=== PATIENT | female | born 1975 | race Caucasian/White ===

== ENCOUNTER 2016-10-28 22:43 | Outpatient (CLI) | payer OTHER | END 2016-10-28 22:44 | disposition home or self-care (01) | DX: G47.33 Obstructive sleep apnea (adult) (pediatric) (principal); G47.61 Periodic limb movement disorder; Z68.41 Body mass index [BMI] 40.0-44.9, adult ==

== ENCOUNTER 2016-12-15 14:46 | Outpatient (CLI) | payer OTHER | END 2016-12-15 14:47 | disposition home or self-care (01) | DX: G47.33 Obstructive sleep apnea (adult) (pediatric) (principal) ==

== ENCOUNTER 2016-12-25 16:30 | Outpatient (CLI) | payer OTHER | END 2016-12-25 16:31 | disposition home or self-care (01) | DX: N39.0 Urinary tract infection, site not specified (principal) ==

== ENCOUNTER 2017-01-28 16:25 | Outpatient (CLI) | payer OTHER ==
[2017-01-28] MEDS ORDERED: IOPAMIDOL-300 100 ML VIAL IVP ONE (19:36)
[2017-01-28] MEDS ORDERED: IOPAMIDOL-300 50 ML VIAL PO ONE (19:36)
== END 2017-01-28 16:26 | disposition home or self-care (01) ==
DX: R10.84 Generalized abdominal pain (principal)
CPT/HCPCS: 74177; Q9967

== ENCOUNTER 2017-02-02 15:11 | Outpatient (CLI) | payer OTHER | END 2017-02-02 15:12 | disposition home or self-care (01) | LOC: SC 15:11 | PROVIDERS: ATTEND Nurse Practitioner Family | DX: G47.33 Obstructive sleep apnea (adult) (pediatric) (principal) | CPT/HCPCS: 99212; 99214 ==

== ENCOUNTER 2017-08-31 19:57 | Outpatient (CLI) | payer OTHER ==
--- NOTE | 2017-09-01 12:43 | Ultrasound Report ---
PELVIC ULTRASOUND: 08/31/2017 COMPARISON: CT scan abdomen and pelvis 01/28/2017. HISTORY: Pelvic pain. Patient has fibroids and history of previous ablation. TECHNIQUE: Real-time scanning by the auto transmission mechanic with saved static images reviewed. Transabdominal approach for global evaluation. Endovaginal scanning for detailed assessment of the endometrium. LAST MENSTRUAL PERIOD: 08/16/2017 FINDINGS: The study is somewhat limited due to patient's body habitus. Uterus: 11.3 x 7.7 x 7.5 cm, volume 341 mL. There is a left fundal subserosal fibroid 3.3 x 3.3 x 3 .2 cm and a right fundal transmural fibroid 5.4 x 5.4 x 4.7 cm. The endometrial echo thickness is no t well seen. Right ovary 2.1 x 1.7 x 2.0 cm, volume 3.7 mL. Left ovary not well seen. No left adnexal mass is appreciated. No free fluid. IMPRESSION: ENLARGED, MYOMATOUS UTERUS, TOTAL VOLUME 341 ML. ENDOMETRIAL ECHO NOT WELL SEEN. NO AD NEXAL MASSES OR FREE FLUID. JOB #: [id number] EXT JOB #:[id number]
== END 2017-08-31 19:58 | disposition home or self-care (01) ==
LOC: DI 19:57
PROVIDERS: ATTEND Obstetrics & Gynecology
DX: D25.2 Subserosal leiomyoma of uterus (principal); D25.9 Leiomyoma of uterus, unspecified
CPT/HCPCS: 76830; 76856

== ENCOUNTER 2017-09-07 14:51 | Outpatient (CLI) | payer OTHER ==
[2017-09-07 14:50] LABS: HEMOGLOBIN A1C 1.25 g/dL
[2017-09-07 14:54] LABS: ALBUMIN/GLOBULIN RATIO 1.4 (1.0-2.2); BILIRUBIN,TOTAL 1.1 mg/dL (0.2-1.0); BUN - BLOOD UREA NITROGEN 12 mg/dL (6-20); CALCIUM 9.4 mg/dL (8.5-10.3); CARBON DIOXIDE - CO2 23 mmol/L (21-32); CHLORIDE 103 mmol/L (101-111); CHOL/HDL RATIO 4.3 (<4.4); CHOLESTEROL 248 mg/dL; CREATININE 0.5 mg/dL (0.4-1.0); GFR - MDRD 135 (>89); GLUCOSE 202 mg/dL (70-100); HDL CHOLESTEROL 58 mg/dL; LDL/HDL RATIO 2.4 (<4.4); POTASSIUM 3.8 mmol/L (3.5-5.0); SODIUM 137 mmol/L (135-145); TOTAL PROTEIN 7.3 g/dL (6.7-8.2); TRIGLYCERIDES 259 mg/dL; VLDL CHOLESTEROL 52 mg/dL
== END 2017-09-07 14:52 | disposition home or self-care (01) ==
LOC: LAB.WCP 14:51
PROVIDERS: ATTEND Physician Assistant Medical
DX: E11.9 Type 2 diabetes mellitus without complications (principal)
CPT/HCPCS: 36415; 80053; 80061; 82947; 83036; 84443

== ENCOUNTER 2017-10-14 18:52 | Outpatient (CLI) | payer OTHER ==
--- NOTE | 2017-10-15 11:00 | Ultrasound Report ---
DATE OF SERVICE: 10/14/2017 RIGHT UPPER QUADRANT ULTRASOUND: 10/14/2017 CLINICAL INDICATION: Pain. TECHNIQUE: Real-time scanning was performed with auto claim representative static images obtained. FINDINGS: The liver measures 19.3 cm. Hepatic echogenicity is increased, suggestive of fatty infiltration. No focal parenchymal lesion or intrahepatic biliary dilatation is seen. The common bile duct measures 3 mm. The gallbladder is normal. The right kidney measures 13.1 cm, and demonstrates no hydronephrosis. No free fluid was present. IMPRESSION: ECHOGENIC LIVER, SUGGESTIVE OF FATTY INFILTRATION. NO EVIDENCE OF CHOLELITHIASIS OR BILIARY OBSTRUCTION. TD: 10/15/2017 11:58
== END 2017-10-14 18:53 | disposition home or self-care (01) ==
LOC: DI 18:52
PROVIDERS: ATTEND Physician Assistant Medical
DX: R10.11 Right upper quadrant pain (principal)
CPT/HCPCS: 76705

== ENCOUNTER 2018-02-11 07:09 | Outpatient (CLI) | payer OTHER ==
[2018-02-11 13:34] LABS: ALBUMIN 4.1 g/dL (3.2-5.5); ALBUMIN/GLOBULIN RATIO 1.3 (1.0-2.2); ALKALINE PHOSPHATASE 46 IU/L (42-121); ALT ALANINE AMINOTRANSFERASE 50 IU/L (10-60); AST ASPARTATE AMINOTRANSFERASE 32 IU/L (10-42); BUN - BLOOD UREA NITROGEN 15 mg/dL (6-20); CALCIUM 9.4 mg/dL (8.5-10.3); CARBON DIOXIDE - CO2 21 mmol/L (21-32); CHLORIDE 104 mmol/L (101-111); CHOL/HDL RATIO 5.5 (<4.4); CHOLESTEROL 273 mg/dL; CREATININE 0.4 mg/dL (0.4-1.0); GFR - MDRD 173 (>89); GLUCOSE 274 mg/dL (70-100); HDL CHOLESTEROL 50 mg/dL; LDL CHOLESTEROL,CALCULATED 166 mg/dL; LDL/HDL RATIO 3.3 (<4.4); SODIUM 136 mmol/L (135-145); TOTAL PROTEIN 7.3 g/dL (6.7-8.2); VLDL CHOLESTEROL 57 mg/dL
[2018-02-11 13:35] LABS: HB2 TOTAL 17.9 g/dL; HEMOGLOBIN A1C 1.4 g/dL; HEMOGLOBIN A1C % 9.3 % (4.6-6.2)
== END 2018-02-11 07:10 | disposition home or self-care (01) ==
LOC: LAB.WCP 07:09
PROVIDERS: ATTEND Physician Assistant Medical
DX: E11.9 Type 2 diabetes mellitus without complications (principal)
CPT/HCPCS: 36415; 80053; 80061; 83036; 83721

== ENCOUNTER 2018-04-05 08:00 | Outpatient (CLI) | payer OTHER ==
[2018-04-05 13:30] LABS: ALBUMIN 3.7 g/dL (3.2-5.5); ALBUMIN/GLOBULIN RATIO 1.1 (1.0-2.2); ALKALINE PHOSPHATASE 40 IU/L (42-121); ALT ALANINE AMINOTRANSFERASE 35 IU/L (10-60); AST ASPARTATE AMINOTRANSFERASE 22 IU/L (10-42); BILIRUBIN,TOTAL 0.8 mg/dL (0.2-1.0); BUN - BLOOD UREA NITROGEN 14 mg/dL (6-20); CARBON DIOXIDE - CO2 26 mmol/L (21-32); CHLORIDE 107 mmol/L (101-111); CHOL/HDL RATIO 4.2 (<4.4); CHOLESTEROL 234 mg/dL; CREATININE 0.6 mg/dL (0.4-1.0); GFR - MDRD 109 (>89); GLUCOSE 126 mg/dL (70-100); HDL CHOLESTEROL 56 mg/dL; LDL CHOLESTEROL,CALCULATED 151 mg/dL; LDL/HDL RATIO 2.7 (<4.4); SODIUM 139 mmol/L (135-145); TOTAL PROTEIN 7.2 g/dL (6.7-8.2); VLDL CHOLESTEROL 27 mg/dL
[2018-04-05 13:40] LABS: HB2 TOTAL 16.5 g/dL; HEMOGLOBIN A1C 0.95 g/dL; HEMOGLOBIN A1C % 7.4 % (4.6-6.2)
== END 2018-04-05 08:01 | disposition home or self-care (01) ==
LOC: LAB.WCP 08:00
PROVIDERS: ATTEND Physician Assistant Medical
DX: E11.9 Type 2 diabetes mellitus without complications (principal)
CPT/HCPCS: 36415; 80053; 80061; 83036; 83721

== ENCOUNTER 2018-04-08 10:39 | Outpatient (CLI) | payer OTHER | END 2018-04-08 10:40 | disposition home or self-care (01) | LOC: NS 10:39 | PROVIDERS: ATTEND Physician Assistant Medical | DX: E11.9 Type 2 diabetes mellitus without complications (principal); Z68.41 Body mass index [BMI] 40.0-44.9, adult; Z79.4 Long term (current) use of insulin | CPT/HCPCS: 97802 ==

== ENCOUNTER 2018-04-25 12:34 | Outpatient (CLI) | payer OTHER ==
[2018-04-25 13:16] LABS: BASOPHILS # (AUTO) 0.1 10^3/uL (0.0-0.1); BASOPHILS % (AUTO) 0.7 %; EOSINOPHILS # (AUTO) 0.4 10^3/uL (0.0-0.7); EOSINOPHILS % (AUTO) 4.4 %; HGB - HEMOGLOBIN 15.5 g/dL (12.0-16.0); LYMPHOCYTES # (AUTO) 2.8 10^3/uL (1.5-3.5); LYMPHOCYTES % (AUTO) 28.5 %; MEAN CORPUSCULAR HEMOGLOBIN 31.2 pg (27.0-31.0); MEAN CORPUSCULAR HGB CONC 33.6 g/dL (32.0-36.0); MEAN PLATELET VOLUME 8.3 fL (7.9-10.8); MONOCYTES # (AUTO) 0.7 10^3/uL (0.0-1.0); MONOCYTES % (AUTO) 7.2 %; NEUTROPHILS # (AUTO) 5.7 10^3/uL (1.5-6.6); NEUTROPHILS % (AUTO) 59.2 %; PLT - PLATELET COUNT 278 10^3/uL (130-450); RED BLOOD COUNT 4.98 10^6/uL (4.20-5.40); RED CELL DISTRIBUTION WIDTH 12.5 % (12.0-15.0); WHITE BLOOD COUNT 9.7 x10^3/uL (4.8-10.8)
[2018-04-25 13:28] LABS: ALBUMIN 4.1 g/dL (3.2-5.5); ALBUMIN/GLOBULIN RATIO 1.1 (1.0-2.2); BILIRUBIN,TOTAL 1.3 mg/dL (0.2-1.0); CALCIUM 9.2 mg/dL (8.5-10.3); CREATININE 0.5 mg/dL (0.4-1.0); TOTAL PROTEIN 7.8 g/dL (6.7-8.2)
[2018-04-25 14:06] LABS: BILIRUBIN,URINE NEGATIVE (NEGATIVE); GLUCOSE, URINE (UA) NEGATIVE (NEGATIVE); KETONES,URINE (UA) NEGATIVE (NEGATIVE); LEUKOCYTE ESTERASE, URINE NEGATIVE (NEGATIVE); NITRITE,URINE NEGATIVE (NEGATIVE); OCCULT BLOOD,URINE TRACE-INTA (NEGATIVE); PH,URINE 6.5 PH (5.0-7.5); PROTEIN,URINE NEGATIVE (NEGATIVE); UROBILINOGEN,URINE 1 (NORMAL) E.U./dL (NORMAL)
[2018-04-25 14:09] LABS: CLARITY,URINE CLEAR (CLEAR); HCG UR QUAL NEGATIVE
== END 2018-04-25 12:35 | disposition home or self-care (01) ==
LOC: LAB 12:34
PROVIDERS: ATTEND Obstetrics & Gynecology
DX: Z01.812 Encounter for preprocedural laboratory examination (principal); N92.0 Excessive and frequent menstruation with regular cycle; D25.9 Leiomyoma of uterus, unspecified
CPT/HCPCS: 36415; 80053; 81003; 81025; 85025; 86850; 86900; 86901

== ENCOUNTER 2018-04-27 06:05 | Inpatient (IN) | payer OTHER ==
--- NOTE | 2018-04-26 07:30 | PREOP HISTORY & PHYSICAL ---
please review meds & allergies below REMOVE THIS NOTE BEFORE SIGNING Thanks DATE OF SERVICE: 04/27/2018 Physician: Mark Pike MD DRAFT PREOP H&P OF 04/25/2018 FOR ANTICIPATED DATE OF PROCEDURE OF 04/27/2018. DIAGNOSES 1. Menorrhagia. 2. Large endometrial leiomyoma. 3. Failed endometrial ablation. 4. Morbid obesity with body mass index 43+. 5. Type 2 diabetes. 6. Hypertension. 7. History of colonic tubular adenoma. INTENDED PROCEDURE: Total laparoscopic hysterectomy/LAVH; bilateral salpingectomy; possible laparotomy with abdominal hysterectomy (total or subtotal). HISTORY OF PRESENT ILLNESS: Patient is a 43-year-old nulligravida who has had multiple bouts of heavy uterine bleeding that has failed prior endometrial ablation by [employer]. She describes the bleeding at times almost daily saturating pads and tampons. This makes work and social activities very difficult. She underwent a [employer] endometrial ablation in January of 2011 and, for a short time, this provided relief. However, within the last 10 months, she has had a return to heavy bleeding. Endometrial biopsy found strips of endometrium without atypia and that was in August 2017. Pelvic ultrasound in August 2017 found a large 5.5 diameter right fundal fibroid with a 3.3 left fundal diameter. Endometrial stripe was not seen, but not significantly large to be real alarming. Working diagnosis is of expanding uterine leiomyoma, one of which is submucosal intramural causing heavy bleeding. She originally lobbied heavily for a hysterectomy, but her diabetes was in poor control with a hemoglobin A1c of 10. Since that time, she has begun diet and exercise and started split-dose insulin. Current insulin dosage is Victoza 18 mg/3 mL subcutaneous pen injector with increasing dose from 0.6 to 1.2 to 1.8. She did have a trial of Humulin. Currently, she takes Humulin N KwikPen 24 units subcutaneous with breakfast and dinner. Her last hemoglobin A1c was 7.4. Baseline weight at her PCP's office was 251, and today's weight at our office is 247. Patient's blood pressure is in control. As patient began to lose weight and her blood glucose is in better control, she began to lobby for hysterectomy; again, she was offered a referral for robotic surgery or fibroid embolization or focused ultrasound treatment of fibroids. These were rejected. She was counseled on the risks of surgery inclusive of anesthesia reaction, bleeding, transfusion, infection, damage to urinary tract or intestines, and high probability of laparotomy. This counseling was repeated twice, once with myself and then with Dr. Mark Webb for a second opinion. Patient strongly desires surgery at [facility] and, after appropriate clearance from both her PCP, SUSANA Ovalle, and Anesthesia, she was scheduled for her case. MEDICATIONS: ALLERGIES 1. CLINDAMYCIN. 2. METFORMIN. 3. VICODIN. 4. MENTHOL. 5. [TIME: 08:24]. 6. SULFA. 7. CYMBALTA. PAST SURGICAL HISTORY 1. Lumpectomy 09/09/2017. 2. Endometrial ablation 09/09/2017. 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 No regular alcohol consumption or drugs of abuse. FAMILY HISTORY: Breast cancer, paternal relatives and particularly aunt. Diabetes, father. Depression, father and brother. High cholesterol, father. REVIEW OF SYSTEMS CONSTITUTIONAL: Weight loss planned. HEENT: Negative. CARDIOVASCULAR: No chest pain, irregular rhythm or problems. Recent EKG, normal sinus rhythm. No acute changes. RESPIRATORY: Negative. GASTROINTESTINAL: Negative. GENITOURINARY: Outlined above. URINARY: Negative. MUSCULOSKELETAL: Negative. SKIN: Negative. BREASTS: Biopsies noted above. No recent changes. NEUROLOGIC: Negative. PSYCHIATRIC: Negative. PHYSICAL EXAMINATION GENERAL: Well groomed, pleasant. VITAL SIGNS: Height 66 inches, weight 247, pulse 72, blood pressure 132/84 large cuff. HEENT: Supple neck. No thyromegaly. EOMI. Dentition in good repair. LUNGS: Clear but distant. CARDIAC: Regular. No significant murmur, distant. ABDOMEN: Truncal obesity with double pannus. Significant fat pad. No obvious hernias. EXTERNAL GENITALIA: No lesions. VAGINA: No significant cystorectocele. No urethral tenderness. CERVIX: No inflammation. Very little mobility. UTERUS: Bulky, large, difficult to determine exact size. ADNEXA: Cannot evaluate. EXTREMITIES: Moves all 4 extremities well. SKIN: Negative. NEUROLOGIC: Negative. PSYCHIATRIC: Negative. DIAGNOSTIC DATA: Preop labs pending. ASSESSMENT: Patient's uterine bleeding is most likely the result of expanding uterine leiomyoma. There are no alarming features to her ultrasound to suggest a concomitant hyperplasia or even carcinoma, though given her obesity, that is possible. Hysterectomy can be accomplished and hopefully total laparoscopic hysterectomy with removal of the tubes. This will be a difficult procedure due to her body habitus. Bariatric instruments will be needed and her pannus may need to be taped accordingly. Prolonged Trendelenburg could cause respiratory difficulty. All these have been discussed with Anesthesia. Patient is aware of the risks of surgery and given nonsurgical methods as well as referral for robotic surgery. She strongly rejects the above. PLAN: Patient will undergo a total laparoscopic hysterectomy that may need to be converted to an abdominal hysterectomy. If abdominal conversion is required , we may not perform a total hysterectomy, but rather subtotal. Patient is well aware of the risks, and these have been discussed on multiple occasions. We will get blood typed and screened ahead of time. TD: 04/25/2018 11:37 [email or web address]
--- NOTE | 2018-04-26 12:33 | PREOP HISTORY & PHYSICAL ---
DATE OF SERVICE: 04/27/2018 Physician: Mark Pike MD DRAFT PREOP H&P OF 04/25/2018 FOR ANTICIPATED DATE OF PROCEDURE OF 04/27/2018. DIAGNOSES 1. Menorrhagia. 2. Large endometrial leiomyoma. 3. Failed endometrial ablation. 4. Morbid obesity with body mass index 43+. 5. Type 2 diabetes. 6. Hypertension. 7. History of colonic tubular adenoma. INTENDED PROCEDURE: Total laparoscopic hysterectomy/LAVH; bilateral salpingectomy; possible laparoto my with abdominal hysterectomy (total or subtotal). HISTORY OF PRESENT ILLNESS: Patient is a 43-year-old nulligravida who has had multiple campos ts of heavy uterine bleeding that has failed prior endometrial ablation by [employer]. She describes t he bleeding at times almost daily saturating pads and tampons. This makes work and social activities very difficult. She underwent a [employer] endometrial ablation in January of 2011 and, for a short time, this provided relief. However, within the last 10 months, she has had a return to heavy bleeding. Endometrial biopsy found strips of endometrium without atypia and that was in August 2017. Pelvic ultrasound in August 2017 found a large 5.5 diameter right fundal fibroid with a 3.3 left fundal di ameter. Endometrial stripe was not seen, but not significantly large to be real alarming. Working d iagnosis is of expanding uterine leiomyoma, one of which is submucosal intramural causing heavy bleed ing. She originally lobbied heavily for a hysterectomy, but her diabetes was in poor control with a hemogl obin A1c of 10. Since that time, she has begun diet and exercise and started split-dose insulin. Cu rrent insulin dosage is Victoza 18 mg/3 mL subcutaneous pen injector with increasing dose from 0.6 to 1.2 to 1.8. She did have a trial of Humulin. Currently, she takes Humulin N KwikPen 24 units subcu taneous with breakfast and dinner. Her last hemoglobin A1c was 7.4. Baseline weight at her PCP's of [facility] was 251, and today's weight at our office is 247. Patient's blood pressure is in control. As patient began to lose weight and her blood glucose is in better control, she began to lobby for hy sterectomy; again, she was offered a referral for robotic surgery or fibroid embolization or focused ultrasound treatment of fibroids. These were rejected. She was counseled on the risks of surgery in clusive of anesthesia reaction, bleeding, transfusion, infection, damage to urinary tract or intestin es, and high probability of laparotomy. This counseling was repeated twice, once with myself and the n with Dr. Mark Webb for a second opinion. Patient strongly desires surgery at [facility] and, after appro priate clearance from both her PCP, SUSANA Ovalle, and Anesthesia, she was scheduled for her case. MEDICATIONS: ALLERGIES 1. CLINDAMYCIN. 2. METFORMIN. 3. VICODIN. 4. MENTHOL. 5. [TIME: 08:24]. 6. SULFA. 7. CYMBALTA. PAST SURGICAL HISTORY 1. Lumpectomy 09/09/2017. 2. Endometrial ablation 09/09/2017. 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 No r egular alcohol consumption or drugs of abuse. FAMILY HISTORY: Breast cancer, paternal relatives and particularly aunt. Diabetes, father. Depress ion, father and brother. High cholesterol, father. REVIEW OF SYSTEMS CONSTITUTIONAL: Weight loss planned. HEENT: Negative. CARDIOVASCULAR: No chest pain, irregular rhythm or problems. Recent EKG, normal sinus rhythm. No a cute changes. RESPIRATORY: Negative. GASTROINTESTINAL: Negative. GENITOURINARY: Outlined above. URINARY: Negative. MUSCULOSKELETAL: Negative. SKIN: Negative. BREASTS: Biopsies noted above. No recent changes. NEUROLOGIC: Negative. PSYCHIATRIC: Negative. PHYSICAL EXAMINATION GENERAL: Well groomed, pleasant. VITAL SIGNS: Height 66 inches, weight 247, pulse 72, blood pressure 132/84 large cuff. HEENT: Supple neck. No thyromegaly. EOMI. Dentition in good repair. LUNGS: Clear but distant. CARDIAC: Regular. No significant murmur, distant. ABDOMEN: Truncal obesity with double pannus. Significant fat pad. No obvious hernias. EXTERNAL GENITALIA: No lesions. VAGINA: No significant cystorectocele. No urethral tenderness. CERVIX: No inflammation. Very little mobility. UTERUS: Bulky, large, difficult to determine exact size. ADNEXA: Cannot evaluate. EXTREMITIES: Moves all 4 extremities well. SKIN: Negative. NEUROLOGIC: Negative. PSYCHIATRIC: Negative. DIAGNOSTIC DATA: Preop labs pending. ASSESSMENT: Patient's uterine bleeding is most likely the result of expanding uterine leiomyoma. Th ere are no alarming features to her ultrasound to suggest a concomitant hyperplasia or even carcinoma , though given her obesity, that is possible. Hysterectomy can be accomplished and hopefully total laparoscopic hysterectomy with removal of the tu bes. This will be a difficult procedure due to her body habitus. Bariatric instruments will be need ed and her pannus may need to be taped accordingly. Prolonged Trendelenburg could cause respiratory difficulty. All these have been discussed with Anesthesia. Patient is aware of the risks of surgery and given nonsurgical methods as well as referral for robotic surgery. She strongly rejects the abo ve. PLAN: Patient will undergo a total laparoscopic hysterectomy that may need to be converted to an abd ominal hysterectomy. If abdominal conversion is required, we may not perform a total hysterectomy, b ut rather subtotal. Patient is well aware of the risks and these have been discussed on multiple occ asions. We will get blood typed and screened ahead of time. TD: 04/25/2018 11:37
--- NOTE | 2018-04-26 12:41 | PREOP HISTORY & PHYSICAL ---
DATE OF SERVICE: 04/25/2018 Physician: Mark Pike MD PREOP H&P OF 04/25/2018 FOR ANTICIPATED DATE OF PROCEDURE OF 04/27/2018. DIAGNOSES 1. Menorrhagia. 2. Large endometrial leiomyoma. 3. Failed endometrial ablation. 4. Morbid obesity with body mass index 43+. 5. Type 2 diabetes. 6. Hypertension. 7. History of colonic tubular adenoma. INTENDED PROCEDURE: Total laparoscopic hysterectomy/LAVH; bilateral salpingectomy; possible laparotomy with abdominal hysterectomy (total or subtotal). HISTORY OF PRESENT ILLNESS: Patient is a 43-year-old nulligravida who has had multiple bouts of heavy uterine bleeding that has failed prior endometrial ablation by [employer]. She describes the bleeding daily saturating pads and tampons. Bleeding & Pain makes work and social activities very difficult. She underwent a [employer] endometrial ablation in January of 2011 and, for a short time, this provided relief. However, within the last 10 months, she has had a return to heavy bleeding. Endometrial biopsy found strips of endometrium without atypia and that was in August 2017. Pelvic ultrasound in August 2017 found a large 5.5 diameter right fundal fibroid with a 3.3 left fundal diameter. Endometrial stripe was not seen and not significantly large to be real alarming. Working diagnosis is of expanding uterine leiomyoma, with submucosal intramural causing heavy bleeding. She originally lobbied heavily for a hysterectomy, but her diabetes was in poor control with a hemoglobin A1c of 10. She has begun diet and exercise and started split-dose insulin. Current insulin dosage is Victoza 18 mg/3 mL subcutaneous pen injector with increasing dose from 0.6 to 1.2 to 1.8. She did have a trial of Humulin. Currently, she takes Humulin N KwikPen 24 units subcutaneous with breakfast and dinner. Her last hemoglobin A1c was 7.4. Baseline weight at her PCP's office was 251, and today's weight at our office is 247. Patient's blood pressure is in control. As patient began to lose weight and her blood glucose is in better control, she began to lobby for hysterectomy; again, she was offered a referral for robotic surgery, fibroid embolization or focused ultrasound treatment of fibroids. These were rejected. She was counseled on the risks of surgery inclusive of anesthesia reaction, bleeding, transfusion, infection, damage to urinary tract or intestines, and high probability of laparotomy. This counseling was repeated twice, once with myself and then with Dr. Mark Webb for a second opinion. Patient strongly desires surgery at [facility] and, after appropriate clearance from both her PCP, SUSANA Ovalle, and Anesthesia, she was scheduled for her case. MEDICATIONS: Propranolol 10 mg twice daily Humulin and 24 units twice daily Sertraline 20 mg twice daily Multiple herbal medications of which she is taken none in the last 7 days. ALLERGIES 1. CLINDAMYCIN. 2. METFORMIN. 3. VICODIN. 4. MENTHOL. 6. SULFA. 7. CYMBALTA. PAST SURGICAL HISTORY 1. Lumpectomy 09/09/2017. 2. Endometrial ablation 09/09/2017. 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 No regular alcohol consumption or drugs of abuse. FAMILY HISTORY: Breast cancer, paternal relatives and particularly aunt. Diabetes, father. Depression, father and brother. High cholesterol, father. REVIEW OF SYSTEMS CONSTITUTIONAL: Weight loss planned. HEENT: Negative. CARDIOVASCULAR: No chest pain, irregular rhythm or problems. Recent EKG, normal sinus rhythm. No acute changes. RESPIRATORY: Negative. GASTROINTESTINAL: Negative. GENITOURINARY: Outlined above. URINARY: Negative. MUSCULOSKELETAL: Negative. SKIN: Negative. BREASTS: Biopsies noted above. No recent changes. NEUROLOGIC: Negative. PSYCHIATRIC: Negative. PHYSICAL EXAMINATION GENERAL: Well groomed, pleasant. VITAL SIGNS: Height 66 inches, weight 247, pulse 72, blood pressure 132/84 large cuff. HEENT: Supple neck. No thyromegaly. EOMI. Dentition in good repair. LUNGS: Clear but distant. CARDIAC: Regular. No significant murmur, distant. ABDOMEN: Truncal obesity with double pannus. Significant fat pad. No obvious hernias. EXTERNAL GENITALIA: No lesions. VAGINA: No significant cystorectocele. No urethral tenderness. CERVIX: No inflammation. Very little mobility. UTERUS: Bulky, large, difficult to determine exact size. ADNEXA: Cannot evaluate. EXTREMITIES: Moves all 4 extremities well. SKIN: Negative. NEUROLOGIC: Negative. PSYCHIATRIC: Negative. DIAGNOSTIC DATA: Preop labs pending. ASSESSMENT: Patient's uterine bleeding is most likely the result of expanding uterine leiomyoma. There are no alarming features to her ultrasound to suggest a concomitant hyperplasia or carcinoma, though given her obesity, that is possible. Hysterectomy can be accomplished and hopefully total laparoscopic hysterectomy with removal of the tubes. LVH / LAVH will be a difficult procedure due to her body habitus. Bariatric instruments will be needed and her pannus may need to be taped accordingly. Prolonged Trendelenburg could cause respiratory difficulty. All these have been discussed with Anesthesia. Patient is aware of the risks of surgery and given nonsurgical methods as well as referral for robotic surgery. She strongly rejects transfer of care or nonsurgical fibroid treatment.. PLAN: Patient will undergo a total laparoscopic hysterectomy that may need to be converted to an abdominal hysterectomy. If abdominal conversion is required , we may not perform a total hysterectomy, but rather subtotal. Patient is well aware of the risks and these have been discussed on multiple occasions. We will get blood typed and screened ahead of time. TD: 04/25/2018 11:37 NNEKA
[2018-04-27 07:06] LABS: HCG UR QUAL NEGATIVE
--- NOTE | 2018-04-27 07:06 | ANESTHESIA ---
Pre-Anesthesia VS, & Labs - Diagnosis menorrhagia, fibroid uterus - Procedure total abdominal hysterectomy Vital Signs: Temp Pulse Resp BP Pulse Ox 36.7 C 20 118/81 H 96 04/27/18 06:40 04/27/18 06:40 04/27/18 06:40 04/27/18 06:40 Height 5 ft 6 in Weight (kg) 111.8 kg Body Mass Index 43.4 - NPO >8 hours - Is Patient ?: No - Lab Results Lab results reviewed: Yes Home Medications and Allergies Home Medications: Ambulatory Orders Medication Instructions Recorded Confirmed Cetirizine HCl [Zyrtec] 10 mg PO DAILY 09/09/14 04/26/18 Propranolol [Inderal] 10 mg PO BID 09/09/14 04/26/18 Dicyclomine [Bentyl] 10 mg PO BID PRN 04/26/18 04/26/18 Insulin NPH Human Isophane 24 unit SUBQ .Q0700,.Q1700 04/26/18 04/26/18 [Humulin N] Meclizine HCl [Motion Sickness 25 mg PO TID PRN 04/26/18 04/26/18 Relief] Ondansetron HCl [Zofran] 4 mg PO Q6HR PRN 04/26/18 04/26/18 Allergies/Adverse Reactions: Allergies Allergy/AdvReac Type Severity Reaction Status Date / Time clindamycin Allergy Intermediate Rash Verified 04/21/13 21:26 duloxetine [From Cymbalta] Allergy Unknown Verified 04/26/18 10:20 glipizide Allergy Unknown Verified 04/26/18 10:20 hydrocodone Allergy Unknown Verified 04/26/18 10:20 menthol Allergy Unknown Verified 04/26/18 10:20 metformin Allergy Unknown Verified 04/26/18 10:20 Sulfa (Sulfonamide Allergy Unknown Verified 04/26/18 10:20 Antibiotics) phenytoin sodium * AdvReac Unknown Hives Verified 04/21/13 21:26 [From Dilantin] phenytoin sodium extended * AdvReac Unknown Hives Verified 04/21/13 21:26 [From Dilantin] Anes History & Medical History - Medical History Cardiovascular: reports: Hypertension Pulmonary: reports: Sleep apnea, CPAP use Gastrointestinal: reports: GERD, Ulcers, Colon polyps Urinary: reports: Incontinence, Chronic bladder infection Musculoskeletal: reports: Chronic back pain Endocrine/Autoimmune: reports: Type 2 diabetes Blood Disorders: reports: Anemia Skin: reports: Eczema Smoking Status: Never smoker - Surgical History General: Colonoscopy, EGD Gynecologic: Endometrial ablation Exam General: Alert, Oriented x3, Cooperative, No acute distress Respiratory: Lungs clear Cardiovascular: Regular rate, Normal S1, Normal S2, No murmurs Plan Anesthesia Type: General Consent for Operative Procedure(s) Verified and Reviewed: Yes Code Status: Attempt Resuscitation ASA classification: 2-Mild systemic disease Is this case an emergency?: No
[2018-04-27] MEDS ORDERED: LACTATED RINGERS 1,000 ML IV ONE ×4 (07:15→11:16)
[2018-04-27] MEDS ORDERED: SCOPOLAMINE PATCH TOP ONE (07:29)
[2018-04-27] MEDS ORDERED: BUPIVACAINE 0.25%-EPI 1:200000 PF 30 ML VIAL ONE (07:36)
[2018-04-27] MEDS ORDERED: ONDANSETRON ODT 4 MG TABLET TL PRN (07:52)
[2018-04-27] MEDS ORDERED: ZOLPIDEM 5 MG TABLET PO PRN (07:52)
[2018-04-27] MEDS ORDERED: ACETAMINOPHEN 1,000 MG/100 ML 100 ML IV ONE (08:00)
[2018-04-27] MEDS ORDERED: KETOROLAC 30 MG/ML VIAL IVP ONE (08:00)
[2018-04-27] MEDS ORDERED: ONDANSETRON 4 MG/2 ML VIAL IVP ONE (08:00)
[2018-04-27] MEDS ORDERED: fentaNYL 250 MCG/5 ML VIAL IVP ONE (08:00)
[2018-04-27] MEDS ORDERED: ROCURONIUM 50 MG/5 ML VIAL IVP ONE (08:00)
[2018-04-27] MEDS ORDERED: ePHEDrine 50 MG/ML VIAL IVP ONE (08:00)
[2018-04-27] MEDS ORDERED: ceFAZolin 3 GM/20 ML SYRINGE IVP ONE (08:00)
[2018-04-27] MEDS ORDERED: SODIUM CHLORIDE 0.9% 10 ML VIAL IV ONE (08:00)
[2018-04-27] MEDS ORDERED: DEXAMETHASONE 4 MG/ML VIAL IVP ONE (08:00)
[2018-04-27] MEDS ORDERED: NEOSTIGMINE 1 MG/1 ML 10 ML MDV IVP ONE (08:00)
[2018-04-27] MEDS ORDERED: LIDOCAINE-MPF 2% 5 ML VIAL IM ONE (08:00)
[2018-04-27] MEDS ORDERED: PROPOFOL 200 MG/20 ML VIAL IVP ONE (08:00)
[2018-04-27] MEDS ORDERED: MIDAZOLAM 2 MG/2 ML VIAL IVP ONE (08:00)
[2018-04-27] MEDS ORDERED: PHENYLEPHRINE 50 MG/5 ML VIAL IV ONE (08:00)
[2018-04-27] MEDS ORDERED: GLYCOPYRROLATE 1 MG/5 ML VIAL IVP ONE (08:00)
[2018-04-27] MEDS ORDERED: BUPIVACAINE 0.25%-EPI 1:200000 PF 30 ML VIAL SUBQ ONE ×2 (08:41)
--- NOTE | 2018-04-27 10:40 | OPERATIVE REPORT ---
Operative Report - General Admit Date: 04/27/18 Procedure Date: 04/27/18 Pre-Op Diagnosis: Fibroids, 12-14 week size; associated pelvic pain; menorrhagia ; morbid obes Procedure Performed: Laparoscopic assisted vaginal hysterectomy; Gavin's culdoplasty; cystoscopy Post Op Diagnosis: Same as above - Procedure Note Primary Surgeon: Mark Pike FACOG, FICS; Secondary Surgeon: Mark Sinclair MD; FACOG Anesthesia Provider: Enrico Preston, certified nurse director of dance Anesthesia Technique: General ET tube Pathology: Uterus cervix and both tubes IV Fluids (mL): 1,800 Estimated Blood Loss (mL): 20 Urine Output (mL): 250 (Clear urine) Drain/Tube Type: Other (Fernandez catheter) Complications: None - Other Other Information/Narrative: Medical considerations: Insulin-dependent diabetes, hypertension, morbid obesity , anxiety disorder Bulky 13 week size uterus with multiple leiomyoma; normal-appearing ovaries;
[2018-04-27] MEDS ORDERED: HYDROmorphone 0.5 MG/0.5 ML SYRINGE ONE (11:45)
[2018-04-27] MEDS ORDERED: INSULIN ASPART 300 UNIT/3 ML PEN SUBQ SCH (12:00)
--- NOTE | 2018-04-27 12:18 | OPERATIVE REPORT ---
DATE OF SERVICE: 04/27/2018 Physician: Mark Pike MD PREOPERATIVE DIAGNOSES: Bulky uterine fibroids 12-to 14-week size; associated pelvic pain; menorrhagia, failing endometrial ablation; morbid obesity, body mass index of 43; insulin-dependent diabetes; hypertension; anxiety disorder. POSTOPERATIVE DIAGNOSES: Bulky uterine fibroids 12-14 week size; associated pelvic pain; menorrhagia, failing endometrial ablation; morbid obesity, body mass index of 43; insulin-dependent diabetes; hypertension; anxiety disorder; hemorrhoids; cystitis. PROCEDURE: Laparoscopic-assisted vaginal hysterectomy; Gavin culdoplasty; cystoscopy. PRIMARY SURGEON: Mark Pike MD, FACOG, FICS. BILLBOARD ERECTOR: Mark Webb MD, FACOG. ANESTHESIA: Enrico Preston, certified nurse armature connector. ANESTHESIA: General with ET tube. PATHOLOGY: Uterus, cervix, and both tubes. IV FLUIDS: 1800 mL. ESTIMATED BLOOD LOSS: 20 mL. URINE OUTPUT: 250 mL., clear urine. DRAINS: Fernandez catheter, functional. COMPLICATIONS: None. FINDINGS 1. Patient is a morbidly obese woman with 2 large panni, one above the umbilicus and one slightly below that extends down and covers the mons pubis. These were inspected for skin diseases, and none were found. The mons pubis is distorted by fat distribution, and has a normal hair distribution. Detailed inspection found no vaginal vulvar lesions. 2. The vagina is distorted slightly with a grade I rectocele. 3. Cervix is bulky and has mild cervicitis evident, but no apparent lesions suspect for dysplasia. 4. The uterus is enlarged to about 13 weeks' size with multiple fibroids. The uterus in essence filled the pelvis, and was above the pelvic brim. 5. The tubes appeared to be normal bilaterally. 6. Ovaries were quiescent, with no overt cystic activity. There were no excrescences, inflammation or evidence of endometriosis. Postprocedure cystoscopy revealed a normal-appearing bladder mucosa except for one area (7 clock) that had a glomerulization and a small Hunner ulcer. Both ureteric openings were opened, with clear urine spilling forth. Post procedure, there were no intrarectal luminal stitches. There were large hemorrhoids, both internal and external. TECHNIQUE: Prior to the procedure, I met the patient and her mother in the preanesthesia holding room. We discussed the indications, the risks, and potential benefits. Alternate procedures were discussed including fibroid embolization, focused ultrasound, and referral for robotic surgery. Patient accepts that there is a significant probability for the need for laparotomy. All questions were answered. Appropriate informed consent documents were signed. Patient was brought to the operating room, placed in supine position. She was uneventfully induced and intubated with back up from Dr. Cuellar, health type technician. Patient was then moved to the low dorsal lithotomy position on Alex mobile stirrups. Arms were tucked. Her upper pannus was taped superior to give access to the umbilicus. She was then prepped and draped in a customary sterile fashion. Preparation included Fernandez catheter and a HUMI uterine manipulator. The HUMI was somewhat difficult to insert due to the distorted uterine cavity. Timeout briefing was done per protocol. Site for subumbilical port was injected with 5 mL of 0.25% Marcaine with epinephrine. Incision was placed under the umbilical skin fold. The subcutaneous tissue was developed with a scalpel and blunt dissection. Laparoscope was then white balanced, calibrated and fitted to the Visiport 5 mm trocar. Towel clamps were placed under the intended port insertion, and superior traction placed to tent the abdominal wall. Under direct visualization , Visiport was inserted. The abdomen was insufflated with CO2 gas under 15 mL of pressure. Under direct visualization, right and left trocars were placed. All trocars were bariatric, and bariatric instruments were used. Patient was placed in a 20-to 30-degree Trendelenburg position and the abdominal and pelvic contents assessed and photographed. We began on the left hand side. The tube was grasped with a Prestige clamp and tented superiorly and medially. The left mesosalpinx was systematically desiccated and divided using the LigaSure. The uteroovarian ligament was desiccated and divided with LigaSure. Round ligament was desiccated and divided with LigaSure. Next, using the LigaSure, the broad ligament was dissected and the uterine vessels skeletonized. Team work was used, with the social service assistant providing superior traction, as well as nursing manipulating the HUMI. The uterine vessels were then doubly desiccated and divided on the right side. We continued to develop a bladder flap with LigaSure. Next, we turned to the right side, and a similar technique was used. In the region of the right uterine vessels, there was a troublesome of venule that required repeat desiccation. The majority of the cardinal ligaments and anterior bladder flap was developed with a combination of LigaSure, blunt and sharp dissection. It was judged that we had enough uterine mobility now to contemplate converting to the vaginal phase. We selected LAVH as to provide a better fixation of the uterosacral ligaments and cardinal ligaments for cuff support. Abdomen was desufflated of CO2 gas, and patient's legs were put in the high lithotomy position. A weighted speculum was placed in the posterior vagina, and Felix clamps placed on the cervical barrel. Applying traction showed adequate mobility to complete the case. Small aliquots of 0.25% Marcaine with epinephrine were injected in a halo around the cervical barrel. Next, using Bovie pencil, the cervix was circumscribed. Blunt and sharp dissection were used to further develop the anterior compartment. We sharply entered the anterior compartment and placed a right angle retractor to lift the bladder out of harm's way. Posterior compartment was entered sharply and long-billed vaginal retractor placed. Next, the base of the uterosacral ligaments were clamped, transected, and transfixed with 0 Vicryl. We continued to march up the cervical barrel with clamping maneuvers to isolate the remainder of the uterosacral ligament and cardinal ligaments. There was a small bridge of tissue on the right hand side that was clamped, transected, and suture ligated with 0 Vicryl. Next, we began morcellation. Uterus was placed on traction, and systematically morselized with a combination of scalpel and scissors. It was removed intact. Immediately after removal, there was a bleeding venule on the right-hand side that was doubly clamped with right angle clamps. The bleeding vessel then was doubly ligated with 3-0 Vicryl. We observed that this staunched the bleeding, and continued the case. Pelvic peritoneum was purse-stringed with a strand of 2-0 chromic. Next, the base of the uterosacral ligaments were captured with 0 Vicryl, and tied firmly into the vaginal cuff. The uterosacral ligaments then were bought in the midline and plicated together. Vaginal mucosa was closed with a running stitch of 0 chromic. We turned to final laparoscopic check, and the abdomen was reinsufflated with CO2 gas. The vaginal cuff and all operative sites were inspected and found to be hemostatically secure; 400 mL of warm normal saline was placed into the abdomen and all CO2 gas evacuated. Trocar skin wounds were closed with subcuticular stitches of 4-0 Monocryl, and dressed with Dermabond. Additional 0.25% Marcaine was placed for patient comfort. Attention was next turned to cystoscopy. Cystoscopy was conducted with a 70- degree video cystoscope. The bladder was intact. There was some concern about a Hunner ulcer noted at the bladder base at roughly 11 o'clock. Ureters were noted to work normally. At this point, Fernandez was replaced. Final sponge, instrument and needle count were confirmed correct Patient was uneventfully aroused from general anesthesia and taken to recovery room in stable condition. Due to the risk and complexity of the surgery, she will remain overnight, possibly for two nights. Additionally, there will be management concerns involving her insulin-dependent diabetes, hypertension, and anxiety disorder. Patient and mother were informed of intraoperative events. TD: 04/27/2018 11:43 NNEKA
[2018-04-27] MEDS: LACTATED RINGERS 1,000 ML IV SCH ×2 (12:27→18:42)
[2018-04-27] MEDS: SERTRALINE 50 MG TABLET PO SCH (12:28)
[2018-04-27] MEDS: FAMOTIDINE 20 MG TABLET PO SCH ×2 (12:29→20:41)
[2018-04-27] MEDS: PROPRANOLOL 10 MG TABLET PO SCH ×2 (12:29→20:41)
[2018-04-27] MEDS: INSULIN NPH HUMAN 100 UNIT/1 ML 10 ML MDV SUBQ SCH ×2 (12:29→20:40)
[2018-04-27] MEDS: IBUPROFEN 600 MG TABLET PO PRN (12:52)
[2018-04-27] MEDS: PHENAZOPYRIDINE 100 MG TABLET PO SCH ×3 (12:54→21:55)
[2018-04-27 13:46] LABS: HB2 TOTAL 15.4 g/dL; HEMOGLOBIN A1C 0.84 g/dL; HEMOGLOBIN A1C % 7.1 % (4.6-6.2)
[2018-04-27] MEDS: HYDROmorphone 1 MG/ML CARPUJECT IVP PRN ×2 (16:37→21:54)
[2018-04-27] MEDS: SODIUM CHLORIDE FLUSH 0.9% 10 ML SYRINGE IVP SCH ×2 (16:42→21:55)
[2018-04-27] MEDS: LORATADINE 10 MG TABLET PO SCH (17:37)
[2018-04-27] MEDS ORDERED: INSULIN GLARGINE 300 UNIT/3 ML PEN SUBQ SCH (21:00)
[2018-04-28] MEDS: IBUPROFEN 600 MG TABLET PO PRN (00:21)
[2018-04-28] MEDS: SODIUM CHLORIDE FLUSH 0.9% 10 ML SYRINGE IVP SCH ×3 (01:18→16:50)
[2018-04-28] MEDS: HYDROmorphone 1 MG/ML CARPUJECT IVP PRN ×5 (02:41→23:04)
[2018-04-28] MEDS: SODIUM CHLORIDE FLUSH 0.9% 10 ML SYRINGE IVP PRN ×2 (02:42→23:04)
[2018-04-28] MEDS: LACTATED RINGERS 1,000 ML IV SCH ×2 (04:31→15:28)
[2018-04-28] MEDS: PHENAZOPYRIDINE 100 MG TABLET PO SCH ×4 (05:01→20:21)
[2018-04-28] MEDS ORDERED: oxyCODONE 5 MG TABLET PO SCH (06:15)
[2018-04-28] MEDS ORDERED: ACETAMINOPHEN 500 MG TABLET PO SCH (06:20)
[2018-04-28 06:26] LABS: BASOPHILS # (AUTO) 0.1 10^3/uL (0.0-0.1); BASOPHILS % (AUTO) 0.6 %; EOSINOPHILS % (AUTO) 0.2 %; HGB - HEMOGLOBIN 13.6 g/dL (12.0-16.0); LYMPHOCYTES % (AUTO) 11.7 %; MEAN CORPUSCULAR HEMOGLOBIN 31.3 pg (27.0-31.0); MEAN CORPUSCULAR HGB CONC 34.1 g/dL (32.0-36.0); MEAN CORPUSCULAR VOLUME 92.1 fL (81.0-99.0); MEAN PLATELET VOLUME 7.8 fL (7.9-10.8); MONOCYTES # (AUTO) 1.2 10^3/uL (0.0-1.0); MONOCYTES % (AUTO) 6.8 %; NEUTROPHILS # (AUTO) 13.8 10^3/uL (1.5-6.6); NEUTROPHILS % (AUTO) 80.7 %; PLT - PLATELET COUNT 276 10^3/uL (130-450); RED BLOOD COUNT 4.32 10^6/uL (4.20-5.40); RED CELL DISTRIBUTION WIDTH 12.6 % (12.0-15.0); WHITE BLOOD COUNT 17.1 x10^3/uL (4.8-10.8)
[2018-04-28] MEDS ORDERED: CELECOXIB 100 MG CAPSULE PO SCH (06:30)
[2018-04-28 06:34] LABS: ALBUMIN 3.6 g/dL (3.2-5.5); ALBUMIN/GLOBULIN RATIO 1.3 (1.0-2.2); CALCIUM 8.6 mg/dL (8.5-10.3); CREATININE 0.7 mg/dL (0.4-1.0); TOTAL PROTEIN 6.3 g/dL (6.7-8.2)
[2018-04-28] MEDS ORDERED: CELECOXIB 100 MG CAPSULE PO STA (06:39)
[2018-04-28] MEDS: LORATADINE 10 MG TABLET PO SCH (09:13)
[2018-04-28] MEDS: PROPRANOLOL 10 MG TABLET PO SCH ×2 (09:13→20:20)
[2018-04-28] MEDS: FAMOTIDINE 20 MG TABLET PO SCH ×2 (09:15→20:20)
[2018-04-28] MEDS: SERTRALINE 50 MG TABLET PO SCH (09:16)
[2018-04-28] MEDS: POLYETHYLENE GLYCOL 3350 17 GM PACKET PO SCH (09:16)
[2018-04-28] MEDS ORDERED: oxyCODONE 30 MG TABLET PO PRN (10:50)
--- NOTE | 2018-04-28 12:50 | PROVIDER PROGRESS NOTE ---
Subjective - General Admit Date: 04/27/18 Procedure Date: 04/27/18 Post Op Days: 1 Procedure Performed: LAVH, bilateral salpingectomy, Gavin's procedure, cystoscopy - Review of Systems General: positive: Fatigue HEENT: positive: Sinus congestion (Sinus drainage improvement with Claritin) Pulmonary: positive: No symptoms Cardiovascular: positive: No symptoms Gastrointestinal: positive: No symptoms (Patient does not report flatus or bowel movement. Bowel protocol in effect.) Genitourinary: positive: Pain (Patient reports mid pelvic pain that was fairly intense in the morning. She worries about tapering her pain medications, particularly the oxycodone. We discussed narcotic effects on bladder, bowel and energy level. She will try to minimize the amount of oxycodone Used. Patient has a history of fibromyalgia.), Retention (After a.m. voiding attempt patient was noted to have retention of 600 cc of urine.) Musculoskeletal: positive: No symptoms, Other (Patient is been very sedentary today. When I visited her compression boots were off.) Skin: positive: No symptoms Psychiatric: positive: No symptoms (Patient reports her anxiety level is not increased.) Objective - Patient Data Vital Signs: Vital Signs x48h Temp Pulse Pulse Resp BP Pulse Ox 04/28/18 07:44 98.4 F 63 20 119/62 94 04/28/18 06:05 97.9 F 88 22 111/81 H 98 Weight: Weight 04/26/18 04/27/18 04/28/18 23:59 23:59 23:59 Weight (kg) 111.8 kg 117 kg Intake & Output: Intake and Output Totals x24h 04/26/18 04/27/18 04/28/18 23:59 23:59 23:59 Intake Total 4785 1161.667 Output Total 2019 1450 Balance 2765 -288.333 - Lab Results Lab Results: 04/28/18 06:15 04/28/18 06:15 Other Lab Results: Lab Results x24hrs 04/28/18 04/28/18 04/28/18 Range/Units 11:39 07:46 06:15 WBC (4.8-10.8) x10^3/uL RBC (4.20-5.40) 10^6/uL Hgb (12.0-16.0) g/dL Hct (37.0-47.0) % MCV (81.0-99.0) fL MCH (27.0-31.0) pg MCHC (32.0-36.0) g/dL RDW (12.0-15.0) % Plt Count (130-450) 10^3/uL MPV (7.9-10.8) fL Neut # (Auto) (1.5-6.6) 10^3/uL Lymph # (Auto) (1.5-3.5) 10^3/uL Yell # (Auto) (0.0-1.0) 10^3/uL Eos # (Auto) (0.0-0.7) 10^3/uL Baso # (Auto) (0.0-0.1) 10^3/uL Absolute Nucleated RBC x10^3/uL Nucleated RBC % /100WBC Sodium 133 L (135-145) mmol/L Potassium 3.5 (3.5-5.0) mmol/L Chloride 103 (101-111) mmol/L Carbon Dioxide 24 (21-32) mmol/L Anion Gap 6.0 (6-13) BUN 10 (6-20) mg/dL Creatinine 0.7 (0.4-1.0) mg/dL Estimated GFR (MDRD) 91 (>89) Glucose 173 H (70-100) mg/dL POC Whole Bld Glucose 200 H 148 H (70 - 100) mg/dL Glycated Hemoglobin (4.6-6.2) % Estim Average Glucose (70-100) Calcium 8.6 (8.5-10.3) mg/dL Total Bilirubin 1.0 (0.2-1.0) mg/dL AST 21 (10-42) IU/L ALT 22 (10-60) IU/L Alkaline Phosphatase 30 L (42-121) IU/L Total Protein 6.3 L (6.7-8.2) g/dL Albumin 3.6 (3.2-5.5) g/dL Globulin 2.7 (2.1-4.2) g/dL Albumin/Globulin Ratio 1.3 (1.0-2.2) 04/28/18 04/27/18 04/27/18 Range/Units 06:15 20:37 16:44 WBC 17.1 H (4.8-10.8) x10^3/uL RBC 4.32 (4.20-5.40) 10^6/uL Hgb 13.6 (12.0-16.0) g/dL Hct 39.8 (37.0-47.0) % MCV 92.1 (81.0-99.0) fL MCH 31.3 H (27.0-31.0) pg MCHC 34.1 (32.0-36.0) g/dL RDW 12.6 (12.0-15.0) % Plt Count 276 (130-450) 10^3/uL MPV 7.8 L (7.9-10.8) fL Neut # (Auto) 13.8 H (1.5-6.6) 10^3/uL Lymph # (Auto) 2.0 (1.5-3.5) 10^3/uL Yell # (Auto) 1.2 H (0.0-1.0) 10^3/uL Eos # (Auto) 0.0 (0.0-0.7) 10^3/uL Baso # (Auto) 0.1 (0.0-0.1) 10^3/uL Absolute Nucleated RBC 0.01 x10^3/uL Nucleated RBC % 0.0 /100WBC Sodium (135-145) mmol/L Potassium (3.5-5.0) mmol/L Chloride (101-111) mmol/L Carbon Dioxide (21-32) mmol/L Anion Gap (6-13) BUN (6-20) mg/dL Creatinine (0.4-1.0) mg/dL Estimated GFR (MDRD) (>89) Glucose (70-100) mg/dL POC Whole Bld Glucose 215 H 238 H (70 - 100) mg/dL Glycated Hemoglobin (4.6-6.2) % Estim Average Glucose (70-100) Calcium (8.5-10.3) mg/dL Total Bilirubin (0.2-1.0) mg/dL AST (10-42) IU/L ALT (10-60) IU/L Alkaline Phosphatase (42-121) IU/L Total Protein (6.7-8.2) g/dL Albumin (3.2-5.5) g/dL Globulin (2.1-4.2) g/dL Albumin/Globulin Ratio (1.0-2.2) 04/27/18 Range/Units 12:45 WBC (4.8-10.8) x10^3/uL RBC (4.20-5.40) 10^6/uL Hgb (12.0-16.0) g/dL Hct (37.0-47.0) % MCV (81.0-99.0) fL MCH (27.0-31.0) pg MCHC (32.0-36.0) g/dL RDW (12.0-15.0) % Plt Count (130-450) 10^3/uL MPV (7.9-10.8) fL Neut # (Auto) (1.5-6.6) 10^3/uL Lymph # (Auto) (1.5-3.5) 10^3/uL Yell # (Auto) (0.0-1.0) 10^3/uL Eos # (Auto) (0.0-0.7) 10^3/uL Baso # (Auto) (0.0-0.1) 10^3/uL Absolute Nucleated RBC x10^3/uL Nucleated RBC % /100WBC Sodium (135-145) mmol/L Potassium (3.5-5.0) mmol/L Chloride (101-111) mmol/L Carbon Dioxide (21-32) mmol/L Anion Gap (6-13) BUN (6-20) mg/dL Creatinine (0.4-1.0) mg/dL Estimated GFR (MDRD) (>89) Glucose (70-100) mg/dL POC Whole Bld Glucose (70 - 100) mg/dL Glycated Hemoglobin 7.1 H (4.6-6.2) % Estim Average Glucose 157 H (70-100) Calcium (8.5-10.3) mg/dL Total Bilirubin (0.2-1.0) mg/dL AST (10-42) IU/L ALT (10-60) IU/L Alkaline Phosphatase (42-121) IU/L Total Protein (6.7-8.2) g/dL Albumin (3.2-5.5) g/dL Globulin (2.1-4.2) g/dL Albumin/Globulin Ratio (1.0-2.2) - Current Medications Current Medications: Current Medications Generic Name Dose Route Start Last Admin Trade Name Freq PRN Reason Stop Dose Admin Famotidine 20 mg 04/27/18 09:00 04/28/18 09:15 Pepcid PO 20 mg BID SHAMA Administration Hydromorphone HCl 0.5 - 1 mg 04/27/18 07:52 04/28/18 11:57 Dilaudid Inj Carp IVP 1 mg Q2HR PRN Administration Pain 8 to 10 Lactated Ringer's 1,000 mls @ 100 mls/hr 04/27/18 08:00 04/28/18 04:31 Lr IV 100 mls/hr .Q10H SHAMA Administration Ibuprofen 600 mg 04/27/18 07:52 04/28/18 00:21 Motrin PO 600 mg Q6HR PRN Administration Pain 1 to 4 Insulin Glargine 10 unit 04/27/18 21:00 04/27/18 20:40 Lantus Solostar SUBQ 10 unit QPM SHAMA Administration Insulin Human NPH 10 unit 04/27/18 09:00 04/27/18 20:40 Novolin N SUBQ 10 unit QPM SHAMA Administration Loratadine 10 mg 04/27/18 18:00 04/28/18 09:13 Claritin PO 10 mg DAILY SHAMA Administration Ondansetron HCl 4 mg 04/27/18 07:52 04/28/18 06:37 Zofran Odt TL 4 mg Q6HR PRN Administration Nausea / Vomiting Phenazopyridine HCl 100 mg 04/27/18 12:00 04/28/18 05:01 Pyridium PO 100 mg TID SHAMA Administration Polyethylene Glycol 17 gm 04/28/18 09:00 04/28/18 09:16 Miralax PO 17 gm DAILY SHAMA Administration Propranolol HCl 10 mg 04/27/18 09:00 04/28/18 09:13 Inderal PO 10 mg BID SHAMA Administration Sertraline HCl 50 mg 04/27/18 09:00 04/28/18 09:16 Zoloft PO Not Given DAILY SHAMA Sodium Chloride 10 ml 04/27/18 07:52 04/28/18 02:42 Normal Saline Flush 0.9% IVP 10 ml PRN PRN Administration NEEDED PER PROVIDER ORDERS Sodium Chloride 10 ml 04/27/18 17:00 04/28/18 09:16 Normal Saline Flush 0.9% IVP Not Given 0100,0900,1700 SHAMA - Physical Exam Wound/Incisions: positive: Healing well General Appearance: positive: Other (Patient resting still in bed. Alert and not in distress.) Eyes Bilateral: positive: EOMI, Conjunctivae nml ENT: positive: No signs of dehydration Neck: positive: No JVD Respiratory: positive: Other (Bronchitic sounds heard suggestive of atelectasis. ) Cardiovascular: positive: Regular rate & rhythm, Systolic murmur (Grade 2 systolic flow murmur no diastolic component; no rub or gallop) Abdomen: positive: Non-tender, Nml bowel sounds Skin: positive: Color nml, No rash, Warm, Dry Extremities: positive: Non-tender, No pedal edema Neurologic/Psychiatric: positive: Oriented x3, CN's nml (2-12), Other (Pre- functory exam finds motor and sensory faculties intact) Assessment/Plan - Assessment/Plan Assessment: Hemodynamically patient seems stable. Yesterday evening she was more active and felt better. Fernandez was discontinued continued. Patient is consuming oxycodone which has caused relative bladder hypotonia and retention. Patient will require periodic voiding and ultrasound checks of post void residuals. Currently her pain is not in adequate control to permit discharge. Hypertension remains in adequate control. Diabetes is in baseline control and may require more intensive outpatient intervention. Plan: Plan 1. Begin periodic voiding 2. Encourage activity and walking 3. Push incentive spirometry #4 4. Ensure patient wears SCDs when she rests in bed.
[2018-04-28] MEDS: oxyCODONE 5 MG TABLET PO PRN ×3 (13:12→20:20)
[2018-04-28] MEDS: INSULIN ASPART 300 UNIT/3 ML PEN SUBQ SCH ×3 (15:23→20:24)
[2018-04-28] MEDS ORDERED: INSULIN GLARGINE 300 UNIT/3 ML PEN SUBQ SCH (19:35)
[2018-04-29] MEDS: oxyCODONE 5 MG TABLET PO PRN ×4 (00:38→13:26)
[2018-04-29] MEDS: SODIUM CHLORIDE FLUSH 0.9% 10 ML SYRINGE IVP SCH ×2 (01:26→02:31)
[2018-04-29] MEDS: LACTATED RINGERS 1,000 ML IV SCH (01:28)
[2018-04-29] MEDS: HYDROmorphone 1 MG/ML CARPUJECT IVP PRN ×2 (02:31→07:02)
[2018-04-29] MEDS: PHENAZOPYRIDINE 100 MG TABLET PO SCH ×3 (02:32→13:27)
[2018-04-29] MEDS: SODIUM CHLORIDE FLUSH 0.9% 10 ML SYRINGE IVP PRN ×2 (07:03→08:10)
[2018-04-29] MEDS: POLYETHYLENE GLYCOL 3350 17 GM PACKET PO SCH (08:04)
[2018-04-29] MEDS: FAMOTIDINE 20 MG TABLET PO SCH (08:06)
[2018-04-29] MEDS: LORATADINE 10 MG TABLET PO SCH (08:06)
[2018-04-29] MEDS: SERTRALINE 50 MG TABLET PO SCH (08:06)
[2018-04-29] MEDS: PROPRANOLOL 10 MG TABLET PO SCH (08:06)
[2018-04-29] MEDS: INSULIN ASPART 300 UNIT/3 ML PEN SUBQ SCH ×4 (08:09→12:10)
[2018-04-29] MEDS ORDERED: DOCUSATE SODIUM 250 MG CAPSULE PO SCH (09:00)
[2018-04-29] MEDS ORDERED: SENNA 8.6 MG TABLET PO SCH (09:00)
[2018-04-29] MEDS: IBUPROFEN 600 MG TABLET PO PRN (11:43)
[2018-04-29 13:46] VITALS: BP 142/82
--- NOTE | 2018-04-29 14:07 | Discharge Plan ---
Discharge Plan Disposition: 01 Home, Self Care Condition: Good Diet: Regular Activity Restrictions: Activity as Tolerated Shower Restrictions: No Driving Restrictions: No Instruction Topics: Oxycodone tablets or capsules, Constipation, Cystitis Interstitial, Hysterectomy Laparoscopic, Hysterectomy Laparoscopic After No Smoking: If you smoke, Please STOP! Call for help. Follow-up with: Anila Ovalle PA-C [Primary Care Provider] - Mark Pike MD [Provider Admit Priv/Credential] -
--- NOTE | 2018-04-29 22:17 | DISCHARGE SUMMARY ---
Physician: Mark Pike MD DATE OF ADMISSION: 04/25/2018 DATE OF DISCHARGE: 04/29/2018 DIAGNOSIS: Large expanding leiomyoma, 13-week size; failed endometrial ablation ; menorrhagia; pelvic pain; morbid obesity with body mass of 43 plus; type 2 diabetes; hypertension; interstitial cystitis. PROCEDURE: Laparoscopic-assisted vaginal hysterectomy with bilateral salpingectomy; Gavin culdoplasty; cystoscopy. COMPLICATIONS: None. CONSULTANTS: [employer]. HISTORY OF PRESENT ILLNESS: The patient is a 43-year-old nulligravida who has had multiple bouts of heavy bleeding associated with pelvic pain. She previously underwent a NovaSure endometrial ablation. She saturates tampons and pads. Combination of bleeding and pain makes work and social activities very difficult. Reference typewritten H and P. Patient had difficult to control diabetes and elevated hemoglobin A1c. She was offered conservative therapy and robotic surgery, but declined. As instructed, she brought down her hemoglobin A1c and it most recently was 7.4. She is currently on split dose insulin. Reference SUSANA Ovalle's clearance. Reference anesthesia clearance. Reference H&P plus office notes. HOSPITAL COURSE Patient was admitted on the morning of 04/26/2018 and underwent a difficult but uneventful laparoscopic-assisted hysterectomy with salpingectomy and culdoplasty. During postop cystoscopy, urinary tract was found intact, but there was glomerulization and Hunner ulcers discovered. Total blood loss was only 20 mL. Patient went to the recovery room in stable condition. Postoperatively, the patient initially did well and on the night of surgery walked & sat in a chair. Fernandez catheter was removed. She then began to experience retention and bladder spasm, probably due to the amount of narcotic she was using was a factor. This was tapered and we began timed voiding. As expected, her glucose was difficult to control with postop values 220-180. Sliding scale with nighttime Lantus was given. Control still remained suboptimal and nighttime Lantus was increased from 10 to 20. On the 2nd, morning glucose check was 173. The sliding scale was not being administered as desired and after correction, the patient's blood glucoses gradually descended. Postop hemoglobin was 13.6 with a white count of 17.1. The patient began to ambulate. Bladder pain and titrating of nonsteroidals and narcotics still remained problematic. Once pain was controlled, she required every 4-hour oxycodone 5 mg to keep comfortable. Pyridium was increased. I discussed the Hunner ulcers that were found with the patient. Patient states that in the past, it was recommended that she see a urologist due to the suspicion of interstitial cystitis. She did have periodic bouts of hematuria. She was also referred to [facility] but failed to follow up. We discussed interstitial cystitis and its potential treatments. The interstitial cystitis will not be the current focus of care. By postoperative day #2, patient was ambulating, tolerating solid food and doing better. She still had a reliance on periodic oxycodone. I informed her that she needs to taper this and that, post discharge, prescription oxycodone would not be given again. We reviewed warning sign and callback instructions. Patient understands that she has a followup appointment in 2 weeks with me. DISCHARGE MEDICATIONS 1. Ibuprofen 600 q.6 h. 2. Oxycodone 5 mg q.4 h. p.r.n. breakthrough pain, 15 only. 3. Colace 250 b.i.d. 4. Lactulose 10 g packs once q.a.m. 5. Macrobid 100 b.i.d. for 7 days. 6. Pyridium 200 t.i.d. for 5 days. TD: 04/29/2018 14:16 [email or web address]
== END 2018-04-29 14:30 | disposition home or self-care (01) | DRG 742 ==
LOC: MS3 06:05 → UNDOADMIN 06:05 → UNDODISIN 04-29 14:30
PROVIDERS: ADMIT Obstetrics & Gynecology; ATTEND Obstetrics & Gynecology
PROC: 0UT9FZZ Resection of Uterus, Via Natural or Artificial Opening With Percutaneous Endoscopic Assistance (ICD-10-PCS; principal; 2018-04-27 07:30)
PROC: 0UT7FZZ Resection of Bilateral Fallopian Tubes, Via Natural or Artificial Opening With Percutaneous Endoscopic Assistance (ICD-10-PCS; 2018-04-27 07:30)
DX: D25.1 Intramural leiomyoma of uterus (principal); Z68.41 Body mass index [BMI] 40.0-44.9, adult; E66.01 Morbid (severe) obesity due to excess calories; E11.65 Type 2 diabetes mellitus with hyperglycemia; I10 Essential (primary) hypertension; N30.10 Interstitial cystitis (chronic) without hematuria; K64.4 Residual hemorrhoidal skin tags; K64.8 Other hemorrhoids; N81.6 Rectocele; N72 Inflammatory disease of cervix uteri; F41.9 Anxiety disorder, unspecified; R33.0 Drug induced retention of urine; T40.2X5A Adverse effect of other opioids, initial encounter; Y92.230 Patient room in hospital as the place of occurrence of the external cause; Z79.4 Long term (current) use of insulin; Z86.010 Personal history of colon polyps
CPT/HCPCS: 36415; 80053; 81025; 83036; 85025; 88307

== ENCOUNTER 2018-07-04 15:19 | Outpatient (CLI) | payer OTHER ==
[2018-07-04 19:22] LABS: ALBUMIN 4.1 g/dL (3.2-5.5); ALBUMIN/GLOBULIN RATIO 1.3 (1.0-2.2); ALKALINE PHOSPHATASE 51 IU/L (42-121); ALT ALANINE AMINOTRANSFERASE 27 IU/L (10-60); AST ASPARTATE AMINOTRANSFERASE 20 IU/L (10-42); BILIRUBIN,TOTAL 0.7 mg/dL (0.2-1.0); BUN - BLOOD UREA NITROGEN 15 mg/dL (6-20); CALCIUM 9.6 mg/dL (8.5-10.3); CARBON DIOXIDE - CO2 28 mmol/L (21-32); CHLORIDE 99 mmol/L (101-111); CHOL/HDL RATIO 3.9 (<4.4); CHOLESTEROL 251 mg/dL; CREATININE 0.5 mg/dL (0.4-1.0); GFR - MDRD 134 (>89); GLUCOSE 114 mg/dL (70-100); HDL CHOLESTEROL 65 mg/dL; LDL CHOLESTEROL,CALCULATED 132 mg/dL; SODIUM 138 mmol/L (135-145); TOTAL PROTEIN 7.3 g/dL (6.7-8.2); VLDL CHOLESTEROL 54 mg/dL
[2018-07-04 19:39] LABS: HB2 TOTAL 15.9 g/dL; HEMOGLOBIN A1C 0.72 g/dL; HEMOGLOBIN A1C % 6.3 % (4.6-6.2)
== END 2018-07-04 15:20 | disposition home or self-care (01) ==
LOC: LAB.WCP 15:19
PROVIDERS: ATTEND Physician Assistant Medical
DX: E11.9 Type 2 diabetes mellitus without complications (principal)
CPT/HCPCS: 36415; 80053; 80061; 83036; 83721

== ENCOUNTER 2018-12-08 08:00 | Outpatient (CLI) | payer OTHER | END 2018-12-08 23:59 | disposition home or self-care (01) | LOC: LAB.R 08:00 | PROVIDERS: ATTEND Physician Assistant Medical | DX: J06.9 Acute upper respiratory infection, unspecified (principal) | CPT/HCPCS: 87275; 87276 ==

== ENCOUNTER 2018-12-21 08:00 | Outpatient (CLI) | payer OTHER ==
[2018-12-21 19:52] LABS: HB2 TOTAL 16.4 g/dL; HEMOGLOBIN A1C 1.17 g/dL; HEMOGLOBIN A1C % 8.7 % (4.6-6.2)
[2018-12-21 20:00] LABS: ALBUMIN/GLOBULIN RATIO 1.4 (1.0-2.2); ALKALINE PHOSPHATASE 45 IU/L (42-121); ALT ALANINE AMINOTRANSFERASE 59 IU/L (10-60); AST ASPARTATE AMINOTRANSFERASE 36 IU/L (10-42); BILIRUBIN,TOTAL 0.9 mg/dL (0.2-1.0); BUN - BLOOD UREA NITROGEN 14 mg/dL (6-20); CALCIUM 9.1 mg/dL (8.5-10.3); CARBON DIOXIDE - CO2 24 mmol/L (21-32); CHLORIDE 103 mmol/L (101-111); CHOLESTEROL 255 mg/dL; CREATININE 0.5 mg/dL (0.4-1.0); GFR - MDRD 134 (>89); GLUCOSE 188 mg/dL (70-100); HDL CHOLESTEROL 63 mg/dL; LDL CHOLESTEROL,CALCULATED 145 mg/dL; LDL/HDL RATIO 2.3 (<4.4); SODIUM 138 mmol/L (135-145); TOTAL PROTEIN 6.9 g/dL (6.7-8.2); VLDL CHOLESTEROL 47 mg/dL
== END 2018-12-21 23:59 | disposition home or self-care (01) ==
LOC: LAB.WCP 08:00
PROVIDERS: ATTEND Physician Assistant Medical
DX: E11.9 Type 2 diabetes mellitus without complications (principal)
CPT/HCPCS: 36415; 80053; 80061; 83036; 83721

== ENCOUNTER 2019-10-29 11:27 | Emergency (ER) | payer OTHER ==
--- NOTE | 2019-10-29 12:25 | XRAY Report ---
Reason: fall Procedure Date: 10/29/2019 Accession Number: [id number] / [id number] Procedure: XR - Sacrum/Coccyx CPT Code: Final Report FULL RESULT: EXAM: SACRUM AND COCCYX RADIOGRAPHY EXAM DATE: 10/29/2019 12:00 PM. HISTORY: Fall. COMPARISONS: SACRUM/COCCYX 12/28/2016 9:53 AM. TECHNIQUE: 2 views. FINDINGS: Alignment: Normal alignment Bones: Nondisplaced coccyx base fracture Joints: Degenerative sacroiliac joints with subchondral sclerosis and osteophytosis. Soft Tissues: Unremarkable. IMPRESSION: Nondisplaced coccyx base fracture RADIA
[2019-10-29 12:36] VITALS: BP 141/83
--- NOTE | 2019-10-29 12:47 | ED Physician Documentation ---
PD HPI BACK PAIN - Stated complaint Stated Complaint: LOWER BACK INJURY - Chief complaint Chief Complaint: Back Pain - History obtained from History obtained from: Patient - History of Present Illness Timing - onset: Other (She slipped and fell at work 3 days ago injuring the low back and coccyx. Pain is severe despite taking Tylenol. 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: Endometrial ablation - Present Medications Home Medications: Ambulatory Orders Medication Instructions Recorded Confirmed Cetirizine HCl [Zyrtec] 10 mg PO BID 09/09/14 04/27/18 Propranolol [Inderal] 10 mg PO BID 09/09/14 04/27/18 Insulin NPH Human Isophane 24 unit SUBQ 0700,1700 04/26/18 04/27/18 [Humulin N] Meloxicam [Mobic] 7.5 mg PO BID PRN #20 tablet 10/29/19 traMADol [Ultram] 50 mg PO Q4-6H PRN #30 tablet 10/29/19 - Allergies Allergies/Adverse Reactions: Allergies Allergy/AdvReac Type Severity Reaction Status Date / Time clindamycin Allergy Intermediate Rash Verified 10/29/19 11:35 duloxetine [From Cymbalta] Allergy Unknown Verified 10/29/19 11:35 glipizide Allergy Unknown Verified 10/29/19 11:35 hydrocodone Allergy Unknown Verified 10/29/19 11:35 menthol Allergy Unknown Verified 10/29/19 11:35 metformin Allergy Unknown Verified 10/29/19 11:35 Sulfa (Sulfonamide Allergy Unknown Verified 10/29/19 11:35 Antibiotics) phenytoin sodium * AdvReac Unknown Hives Verified 10/29/19 11:35 [From Dilantin] phenytoin sodium extended * AdvReac Unknown Hives Verified 10/29/19 11:35 [From Dilantin] acetaminophen [From Percocet] AdvReac Itching Verified 10/29/19 11:35 hydromorphone [From Dilaudid] AdvReac Itching Verified 10/29/19 11:35 oxycodone [From Percocet] AdvReac Itching Verified 10/29/19 11:35 - Social History Does the pt smoke?: No Smoking Status: Never smoker Does the pt drink ETOH?: No Does the pt have substance abuse?: No - Immunizations Immunizations are current?: Yes PD ED PE NORMAL - Vitals Vital signs reviewed: Yes - General General: Alert and oriented X 3, No acute distress - Neck Neck: No bony TTP - Back Back: Other (Lumbar spine is nontender, she is tender over the sacrum and coccyx.) - Neuro Neuro: Alert and oriented X 3, Normal speech Results - Vitals Vitals: Vital Signs - 24 hr 10/29/19 10/29/19 11:31 12:35 Temperature 36.7 C 36.8 C Heart Rate 100 91 Respiratory 18 16 Rate Blood Pressure 140/93 H 141/83 H O2 Saturation 100 98 Oxygen O2 Source Room air - Rads (name of study) Sacrum and coccyx x-ray Radiology: EMP read contemporaneously (Nondisplaced fracture at the base of the coccyx) PD MEDICAL DECISION MAKING - ED course ED course: 44-year-old woman presents with a isolated coccygeal fracture, we discussed the conservative nature of treatment and she is prescribed pain medication. Departure - Departure Disposition: 01 Home, Self Care Clinical Impression: Back pain Qualifiers: Back pain location: low back pain Chronicity: acute Back pain laterality: bilateral Sciatica presence: without sciatica Qualified Code(s): M54.5 - Low back pain Fractured coccyx Qualifiers: Encounter type: initial encounter Fracture type: closed Qualified Code(s): S32.2XXA - Fracture of coccyx, initial encounter for closed fracture Condition: Good Record reviewed to determine appropriate education?: Yes Instructions: ED Low Back Pain Injury, ED Fx Coccyx Prescriptions: Meloxicam [Mobic] 7.5 mg PO BID PRN #20 tablet PRN Reason: Pain traMADol [Ultram] 50 mg PO Q4-6H PRN #30 tablet PRN Reason: Pain Comments: Do not drink or drive while taking tramadol, return for new or worsening symptoms. You can take Tylenol in addition to the prescribed medication. Follow-up with your doctor in a week. Your blood pressure was elevated today on check into the emergency department. This does not mean that you have hypertension, it is a common phenomenon to come to the emergency department and have elevated blood pressure. I recommend that you see your primary care physician within the week to have it rechecked when you are feeling better. Forms: Activity restrictions
== END 2019-10-29 12:59 | disposition home or self-care (01) ==
LOC: ED 11:27
DX: S32.2XXA Fracture of coccyx, initial encounter for closed fracture (principal); M54.5 Low back pain; W01.0XXA Fall on same level from slipping, tripping and stumbling without subsequent striking against object, initial encounter; Y92.89 Other specified places as the place of occurrence of the external cause; Y99.0 Civilian activity done for income or pay; I10 Essential (primary) hypertension; E11.9 Type 2 diabetes mellitus without complications
CPT/HCPCS: 72220; 99283

== ENCOUNTER 2019-11-13 08:00 | Outpatient (CLI) | payer OTHER ==
[2019-11-13 14:33] LABS: ALKALINE PHOSPHATASE 55 IU/L (42-121); ALT ALANINE AMINOTRANSFERASE 66 IU/L (10-60); AST ASPARTATE AMINOTRANSFERASE 33 IU/L (10-42); CALCIUM 9.3 mg/dL (8.5-10.3); CARBON DIOXIDE - CO2 27 mmol/L (21-32); CHLORIDE 103 mmol/L (101-111); CHOLESTEROL 288 mg/dL; GLUCOSE 242 mg/dL (70-100); SODIUM 139 mmol/L (135-145)
[2019-11-13 14:47] LABS: HB2 TOTAL 17.5 g/dL; HEMOGLOBIN A1C 1.38 g/dL; HEMOGLOBIN A1C % 9.4 % (4.6-6.2)
[2019-11-13 15:02] LABS: CREATININE,URINE 192.8 mg/dL; MICROALBUM/CREATININE RATIO,UR 15.6 ug/mg (<30.0)
[2019-11-13 15:42] LABS: ALBUMIN 4.2 g/dL (3.2-5.5); ALBUMIN/GLOBULIN RATIO 1.2 (1.0-2.2); BILIRUBIN,TOTAL 0.7 mg/dL (0.2-1.0); BUN - BLOOD UREA NITROGEN 17 mg/dL (6-20); CHOL/HDL RATIO 4.9 (<4.4); CREATININE 0.5 mg/dL (0.4-1.0); GFR - MDRD 133 (>89); HDL CHOLESTEROL 59 mg/dL; LDL CHOLESTEROL,CALCULATED 193 mg/dL; LDL/HDL RATIO 3.3 (<4.4); TOTAL PROTEIN 7.6 g/dL (6.7-8.2); VLDL CHOLESTEROL 36 mg/dL
== END 2019-11-13 23:59 | disposition home or self-care (01) ==
LOC: LAB.WCP 08:00
PROVIDERS: ATTEND Physician Assistant Medical
DX: E11.9 Type 2 diabetes mellitus without complications (principal)
CPT/HCPCS: 36415; 80053; 80061; 82043; 82570; 83036; 83721; 84443

== ENCOUNTER 2020-02-03 07:12 | Outpatient (CLI) | payer OTHER ==
--- NOTE | 2020-02-05 06:06 | XRAY Report ---
Reason: S32.2 Procedure Date: 02/03/2020 Accession Number: [id number] / [id number] Procedure: XR - Lumbar Spine 2 View CPT Code: Final Report FULL RESULT: EXAM: LUMBOSACRAL SPINE RADIOGRAPHY EXAM DATE: 02/03/2020 07:26 AM. CLINICAL HISTORY: Coccygeal fracture. COMPARISONS: XR LUMBOSACRAL SPINE 4 VIEWS 04/05/2012 9:42 PM. ABDOMEN/PELVIS W/ 01/28/2017 7:28 PM. TECHNIQUE: 2 views. FINDINGS: Alignment: Apparent new retrolisthesis at L2-L4 and L4-L5 is likely related to obliquity on the lateral view as there is no evidence of spondylolisthesis on the prior CT. No significant scoliosis is appreciated. Bones: Five [id number] lumbar vertebral bodies are present. No acute lumbar spine fracture is identified. Small anteriorly projecting osteophytes are seen at all lumbar levels. Disks: There is mild disk height loss at all lumbar levels. Facets: Mild bilateral facet arthropathy is present at L4-L5 and L5-S1. Sacroiliac Joints: Moderate degenerative changes are seen in the bilateral sacroiliac joints. Soft Tissues: Normal. The visualized bowel gas pattern is normal. IMPRESSION: 1. No acute lumbar spine fracture. 2. Mild multilevel degenerative changes appear similar compared to the CT of the abdomen and pelvis from 01/28/2017. RADIA
--- NOTE | 2020-02-05 06:06 | XRAY Report ---
Reason: S32.2 Procedure Date: 02/03/2020 Accession Number: [id number] / [id number] Procedure: XR - Sacrum/Coccyx CPT Code: Final Report FULL RESULT: EXAM: SACRUM AND COCCYX RADIOGRAPHY EXAM DATE: 02/03/2020 07:26 AM. HISTORY: S32.2. Fracture of the coccyx. COMPARISONS: SACRUM/COCCYX 10/29/2019 11:43 AM. TECHNIQUE: 3 views. FINDINGS: Alignment: Normal. The sacrum and coccyx are normally aligned. Bones: Healing fracture of the proximal coccyx. There does not appear to be complete bony bridging. Joints: No dislocation seen. Degenerative changes in the sacroiliac joints. Soft Tissues: Grossly unremarkable. IMPRESSION: Healing fracture of the proximal coccyx. RADIA
== END 2020-02-03 07:13 | disposition home or self-care (01) ==
LOC: DI 07:12
PROVIDERS: ATTEND Physician Assistant Medical
DX: S32.2XXD Fracture of coccyx, subsequent encounter for fracture with routine healing (principal); M51.36 Other intervertebral disc degeneration, lumbar region; M47.816 Spondylosis without myelopathy or radiculopathy, lumbar region; M47.817 Spondylosis without myelopathy or radiculopathy, lumbosacral region
CPT/HCPCS: 72100; 72220

== ENCOUNTER 2020-02-23 08:00 | Outpatient (CLI) | payer OTHER ==
[2020-02-23 13:28] LABS: BASOPHILS # (AUTO) 0.1 10^3/uL (0.0-0.1); BASOPHILS % (AUTO) 0.7 %; EOSINOPHILS # (AUTO) 0.3 10^3/uL (0.0-0.7); EOSINOPHILS % (AUTO) 2.5 %; HGB - HEMOGLOBIN 16.1 g/dL (12.0-16.0); LYMPHOCYTES # (AUTO) 2.7 10^3/uL (1.5-3.5); LYMPHOCYTES % (AUTO) 25.7 %; MEAN CORPUSCULAR HEMOGLOBIN 30.2 pg (27.0-31.0); MEAN CORPUSCULAR HGB CONC 32.6 g/dL (32.0-36.0); MEAN CORPUSCULAR VOLUME 92.7 fL (81.0-99.0); MEAN PLATELET VOLUME 10.5 fL (7.9-10.8); MONOCYTES # (AUTO) 0.9 10^3/uL (0.0-1.0); MONOCYTES % (AUTO) 8.1 %; NEUTROPHILS # (AUTO) 6.7 10^3/uL (1.5-6.6); NEUTROPHILS % (AUTO) 62.6 %; PLT - PLATELET COUNT 341 10^3/uL (130-450); RED BLOOD COUNT 5.33 10^6/uL (4.20-5.40); RED CELL DISTRIBUTION WIDTH 12.9 % (12.0-15.0); WHITE BLOOD COUNT 10.7 x10^3/uL (4.8-10.8)
[2020-02-23 14:10] LABS: HB2 TOTAL 17.2 g/dL; HEMOGLOBIN A1C 1.14 g/dL; HEMOGLOBIN A1C % 8.2 % (4.6-6.2)
[2020-02-23 14:14] LABS: FERRITIN 220.4 ng/mL (11.0-306.8)
[2020-02-23 14:15] LABS: % IRON SATURATION 32 % (20-50); ALBUMIN 4.6 g/dL (3.2-5.5); ALBUMIN/GLOBULIN RATIO 1.3 (1.0-2.2); ALKALINE PHOSPHATASE 47 IU/L (42-121); ALT ALANINE AMINOTRANSFERASE 64 IU/L (10-60); AST ASPARTATE AMINOTRANSFERASE 40 IU/L (10-42); BILIRUBIN,TOTAL 1.3 mg/dL (0.2-1.0); BUN - BLOOD UREA NITROGEN 19 mg/dL (6-20); CALCIUM 9.5 mg/dL (8.5-10.3); CARBON DIOXIDE - CO2 27 mmol/L (21-32); CHLORIDE 101 mmol/L (101-111); CHOL/HDL RATIO 5.1 (<4.4); CHOLESTEROL 286 mg/dL; CREATININE 0.6 mg/dL (0.4-1.0); GLUCOSE 180 mg/dL (70-100); HDL CHOLESTEROL 56 mg/dL; IRON 108 ug/dL (28-170); LDL CHOLESTEROL,CALCULATED 196 mg/dL; LDL/HDL RATIO 3.5 (<4.4); SODIUM 138 mmol/L (135-145); TOTAL IRON BINDING CAPACITY 339 ug/dL (250-450); TOTAL PROTEIN 8.2 g/dL (6.7-8.2); TRANSFERRIN 242 mg/dL (192-382); VLDL CHOLESTEROL 34 mg/dL
== END 2020-02-23 23:59 | disposition home or self-care (01) ==
LOC: LAB.WCP 08:00
PROVIDERS: ATTEND Physician Assistant Medical
DX: E11.9 Type 2 diabetes mellitus without complications (principal); D64.9 Anemia, unspecified
CPT/HCPCS: 36415; 80053; 80061; 82607; 82728; 83036; 83540; 83721; 84466; 85025

== ENCOUNTER 2020-03-15 20:09 | Emergency (ER) | payer OTHER ==
--- NOTE | 2020-03-15 20:59 | ED Physician Documentation ---
History of Present Illness - Stated complaint Stated Complaint: POST OP WOUND SWELLING/REDNESS - Chief complaint Chief Complaint: Abd Pain - History obtained from History obtained from: Patient - History of Present Illness Timing: How many weeks ago (1) Pain level max: 4 Pain level now: 4 - Additonal information Additional information: 45-year-old female states that she had a gastric sleeve performed in [place], returned home 4 to 5 days ago. She states the RICARDO drain site is still open. She is concerned about potential infection in her surgical wounds as well. Noted erythema to 1 of the incisions. No drainage. 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 - Present Medications Home Medications: Ambulatory Orders Medication Instructions Recorded Confirmed Cetirizine HCl [Zyrtec] 10 mg PO BID 09/09/14 04/27/18 Propranolol [Inderal] 10 mg PO BID 09/09/14 04/27/18 Insulin NPH Human Isophane 24 unit SUBQ 0700,1700 04/26/18 04/27/18 [Humulin N] Meloxicam [Mobic] 7.5 mg PO BID PRN #20 tablet 10/29/19 traMADol [Ultram] 50 mg PO Q4-6H PRN #30 tablet 10/29/19 Cephalexin [Keflex] 500 mg PO Q6H #40 capsule 03/15/20 - Allergies Allergies/Adverse Reactions: Allergies Allergy/AdvReac Type Severity Reaction Status Date / Time clindamycin Allergy Intermediate Rash Verified 03/15/20 20:13 duloxetine [From Cymbalta] Allergy Unknown Verified 03/15/20 20:13 glipizide Allergy Unknown Verified 03/15/20 20:13 hydrocodone Allergy Unknown Verified 03/15/20 20:13 menthol Allergy Unknown Verified 03/15/20 20:13 metformin Allergy Unknown Verified 03/15/20 20:13 Sulfa (Sulfonamide Allergy Unknown Verified 03/15/20 20:13 Antibiotics) phenytoin sodium * AdvReac Unknown Hives Verified 03/15/20 20:13 [From Dilantin] phenytoin sodium extended * AdvReac Unknown Hives Verified 03/15/20 20:13 [From Dilantin] acetaminophen [From Percocet] AdvReac Itching Verified 03/15/20 20:13 hydromorphone [From Dilaudid] AdvReac Itching Verified 03/15/20 20:13 oxycodone [From Percocet] AdvReac Itching Verified 03/15/20 20:13 - Social History Does the pt smoke?: No Smoking Status: Never smoker Does the pt drink ETOH?: No Does the pt have substance abuse?: No - Immunizations Immunizations are current?: Yes - POLST Patient has POLST: No PD ED PE NORMAL - Vitals Vital signs reviewed: Yes - General General: Alert and oriented X 3, No acute distress - HEENT HEENT: Moist mucous membranes - Neck Neck: Supple, no meningeal sign - Cardiac Cardiac: RRR - Respiratory Respiratory: No respiratory distress, Clear bilaterally - Abdomen Abdomen: Soft, Other (RICARDO drain wound is dehisced. She states it is been this way for about a week. Minimal erythema. The left lower laparoscopic incision is also mildly erythematous. Mild induration. No drainage.) - Derm Derm: Warm and dry - Neuro Neuro: Alert and oriented X 3 Results - Vitals Vitals: Vital Signs - 24 hr 03/15/20 03/15/20 03/15/20 20:13 20:19 21:18 Temperature 36.5 C 36.8 C Heart Rate 66 65 62 Respiratory 14 16 16 Rate Blood Pressure 152/80 H 142/78 H 136/59 H O2 Saturation 99 99 99 Oxygen O2 Source Room air PD MEDICAL DECISION MAKING - ED course Complexity details: considered differential, d/w patient ED course: Patient with what appears to be cellulitis of the abdominal wall. This is mildly cellulitic around the laparoscopic areas. Mainly the left lower i ncision. RICARDO drain wound is dehisced. Has been this way for over a week. Will likely need wound care for this. She had an ultrasound earlier tonight as well. These results are not available. She will follow-up with her doctor for these results. We will start her on Keflex. Patient has multiple antibiotic allergies. Patient is well-appearing, nontoxic. Afebrile. Patient counseled regarding signs and symptoms for which I believe and urgent re-evaluation would be necessary. Patient with good understanding of and agreement to plan and is comfortable going home at this time This document was made in part using voice recognition software. While efforts are made to proofread this document, sound alike and grammatical errors may occur. Departure - Departure Disposition: 01 Home, Self Care Clinical Impression: Cellulitis Qualifiers: Site of cellulitis: trunk Site of cellulitis of trunk: abdominal wall Qualified Code(s): L03.311 - Cellulitis of abdominal wall Condition: Good Instructions: ED Infec Skin Cellulitis Follow-Up: Anila Ovalle PA-C [Primary Care Provider] - Prescriptions: Cephalexin [Keflex] 500 mg PO Q6H #40 capsule Comments: Take all antibiotics until gone. Return if you worsen. Follow-up with your doctor for results of your ultrasound. Discharge Date/Time: 03/15/20 21:20
[2020-03-15 21:20] VITALS: BP 136/59
== END 2020-03-15 21:20 | disposition home or self-care (01) ==
LOC: ED 20:09
DX: T81.31XA Disruption of external operation (surgical) wound, not elsewhere classified, initial encounter (principal); T81.41XA Infection following a procedure, superficial incisional surgical site, initial encounter; L03.311 Cellulitis of abdominal wall; Y83.8 Other surgical procedures as the cause of abnormal reaction of the patient, or of later complication, without mention of misadventure at the time of the procedure; Z98.84 Bariatric surgery status; I10 Essential (primary) hypertension; E11.9 Type 2 diabetes mellitus without complications; Z79.4 Long term (current) use of insulin; Z88.1 Allergy status to other antibiotic agents; Z88.2 Allergy status to sulfonamides
CPT/HCPCS: 99282; 99284

== ENCOUNTER 2020-03-19 14:36 | Outpatient (CLI) | payer OTHER ==
[2020-03-19] MEDS ORDERED: IOVERSOL 320 100 ML VIAL IVP ONE ×2 (14:47→16:17)
[2020-03-19] MEDS ORDERED: IOVERSOL 320 50 ML VIAL ONE (14:47)
[2020-03-19 14:52] LABS: BASOPHILS # (AUTO) 0.1 10^3/uL (0.0-0.1); BASOPHILS % (AUTO) 0.6 %; EOSINOPHILS # (AUTO) 0.3 10^3/uL (0.0-0.7); EOSINOPHILS % (AUTO) 2.9 %; HGB - HEMOGLOBIN 15.5 g/dL (12.0-16.0); LYMPHOCYTES # (AUTO) 2.5 10^3/uL (1.5-3.5); LYMPHOCYTES % (AUTO) 26.8 %; MEAN CORPUSCULAR HEMOGLOBIN 31.7 pg (27.0-31.0); MEAN CORPUSCULAR HGB CONC 34.4 g/dL (32.0-36.0); MEAN CORPUSCULAR VOLUME 92.2 fL (81.0-99.0); MEAN PLATELET VOLUME 9.8 fL (7.9-10.8); MONOCYTES # (AUTO) 0.7 10^3/uL (0.0-1.0); MONOCYTES % (AUTO) 7.5 %; NEUTROPHILS # (AUTO) 5.7 10^3/uL (1.5-6.6); NEUTROPHILS % (AUTO) 61.9 %; PLT - PLATELET COUNT 298 10^3/uL (130-450); RED BLOOD COUNT 4.89 10^6/uL (4.20-5.40); RED CELL DISTRIBUTION WIDTH 13.2 % (12.0-15.0); WHITE BLOOD COUNT 9.3 x10^3/uL (4.8-10.8)
[2020-03-19 15:03] LABS: ALBUMIN 4.3 g/dL (3.2-5.5); ALBUMIN/GLOBULIN RATIO 1.3 (1.0-2.2); BILIRUBIN,TOTAL 1.3 mg/dL (0.2-1.0); CALCIUM 9.5 mg/dL (8.5-10.3); CREATININE 0.6 mg/dL (0.4-1.0); TOTAL PROTEIN 7.6 g/dL (6.7-8.2)
[2020-03-19] MEDS ORDERED: IOVERSOL 320 50 ML VIAL PO ONE (16:17)
--- NOTE | 2020-03-19 16:55 | CT Report ---
PROCEDURE: Abdomen/Pelvis W INDICATIONS: LLQ ABD PAIN CONTRAST: IV CONTRAST: Optiray 320 ml: 100 PO CONTRAST: Optiray 320 ml50 TECHNIQUE: After the administration of oral and intravenous contrast, 5 mm thick sections acquired from the diap hragms to the symphysis. 5 mm thick coronal and sagittal reformats were acquired. For radiation dos e reduction, the following was used: automated exposure control, adjustment of mA and/or kV accordin g to patient size. COMPARISON: Ultrasound of abdomen and pelvis dated 03/15/2020. CT of abdomen and pelvis dated 7. FINDINGS: Image quality: Excellent. ABDOMEN: Lung bases: Lung bases are clear. Heart size is normal. Solid organs: Liver and spleen are normal in size and enhancement. Gallbladder is within normal samaniego its . Biliary system is non dilated. Pancreas enhances normally. No adrenal nodules. Kidneys demon strate normal size and enhancement, without hydronephrosis. Peritoneum and bowel: Patient is status post gastric sleeve surgery with postsurgical changes seen i n the epigastric region and stomach. There is no bowel obstruction. Bowel loops demonstrate normal wa ll thickness and caliber. No free fluid or air. Appendix is visualized and is within normal limits Nodes and vessels: No retroperitoneal or mesenteric adenopathy by size criteria. Aorta and inferior vena cava are normal in size. Miscellaneous: Small Balko hernia is seen containing fat only. Postsurgical changes are noted in left anterior abdominal wall with nonspecific subcutaneous fat stranding. No abscess collection. PELVIS: Genitourinary: Bladder wall thickness is normal. Miscellaneous: No inguinal hernias or adenopathy. Bones: No suspicious bony lesions. No vertebral body compression fractures. IMPRESSION: 1. Post surgical changes in anterior abdominal wall. No discrete drainable fluid collection is identi fied. 2. No peritoneal free fluid or free air. No bowel obstruction. Postsurgical changes are noted from pr ior gastric sleeve surgery. No abnormal bowel wall thickening. Normal appendix. Reviewed by: Gregory De Paz MD on 03/19/2020 4:53 PM PDT Approved by: Gregory De Paz MD on 03/19/2020 4:53 PM PDT Station ID: [id number]
== END 2020-03-19 14:37 | disposition home or self-care (01) ==
LOC: DI 14:36
PROVIDERS: ATTEND Physician Assistant Medical
DX: T81.41XA Infection following a procedure, superficial incisional surgical site, initial encounter (principal); R10.32 Left lower quadrant pain
CPT/HCPCS: 36415; 74177; 80053; 83690; 85025; Q9967

== ENCOUNTER 2020-04-04 12:34 | Outpatient (CLI) | payer OTHER | END 2020-04-04 12:35 | disposition home or self-care (01) | LOC: NS 12:34 | PROVIDERS: ATTEND Family Medicine | DX: Z71.3 Dietary counseling and surveillance (principal); K76.0 Fatty (change of) liver, not elsewhere classified | CPT/HCPCS: 97802 ==

== ENCOUNTER 2020-05-09 15:37 | Outpatient (CLI) | payer OTHER ==
--- NOTE | 2020-05-10 12:42 | Mammography Report ---
BILATERAL DIGITAL SCREENING MAMMOGRAM 3D/2D: 05/09/2020 CLINICAL: Routine screening. Family history of breast cancer. Comparison is made to exams dated: 01/27/2016 mammogram, 11/25/2012 mammogram, 04/10/2010 mammogram, and 02/19/2010 mammogram - [facility]. The tissue of both breasts is heterogeneously de nse. This may lower the sensitivity of mammography. There is a biopsy clip in the right breast. No significant masses, calcifications, or other findings are seen in either breast. There has been no significant interval change. IMPRESSION: NEGATIVE There is no mammographic evidence of malignancy. A 1 year screening mammogram is recommended. This exam was interpreted at Station ID: [id number]. NOTE: For mammograms, a report in lay terms will be sent to the patient. Approximately 15% of breast malignancies will not be visualized mammographically. In the management of a palpable breast mass, a negative mammogram must not discourage biopsy of a clinically suspicious lesion. Electronically Signed By: Saud Ambrose M.D. atthad/ayush:05/09/2020 17:43:36 ACR BI-RADS Category 1: Negative 3341F PARENCHYMAL PATTERN: (D) - The breast(s) demonstrate(s) heterogeneously dense fibroglandular abner thompson. BI-RADS CATEGORY: (1) - 1 RECOMMENDATION: (ANNUAL) - Recommend routine annual screening mammography. [id number] 1 year screening LATERALITY: (B)
== END 2020-05-09 15:38 | disposition home or self-care (01) ==
LOC: DI 15:37
DX: Z12.31 Encounter for screening mammogram for malignant neoplasm of breast (principal); Z80.3 Family history of malignant neoplasm of breast
CPT/HCPCS: 77063; 77067

== ENCOUNTER 2020-05-13 09:56 | Outpatient (CLI) | payer OTHER | END 2020-05-13 09:57 | disposition home or self-care (01) | LOC: NS 09:56 | PROVIDERS: ATTEND Family Medicine | DX: Z71.3 Dietary counseling and surveillance (principal); K76.0 Fatty (change of) liver, not elsewhere classified | CPT/HCPCS: 97803 ==

== ENCOUNTER 2020-05-16 10:57 | Day surgery (SDC) | payer OTHER ==
[2020-05-16] MEDS ORDERED: LACTATED RINGERS 1,000 ML IV ONE ×2 (11:23→12:44)
--- NOTE | 2020-05-16 11:59 | ANESTHESIA ---
Pre-Anesthesia VS, & Labs - Diagnosis history of colon polyps - Procedure colonoscopy Vital Signs: Temp Pulse Resp BP Pulse Ox 36 C L 78 16 151/97 H 99 05/16/20 11:09 05/16/20 11:09 05/16/20 11:09 05/16/20 11:09 05/16/20 11:09 Height 5 ft 6 in Weight (kg) 100.1 kg Body Mass Index 38.2 - NPO >8 hours - Is Patient ?: No - Lab Results Current Lab Results: Laboratory Tests 05/16/20 11:29: POC Whole Bld Glucose 89 Home Medications and Allergies Cetirizine HCl [Zyrtec] 10 mg PO BID 09/09/14 Biotin 10,000 mcg PO DAILY 03/20/20 Docusate Sodium 250Mg Capsule [Colace 250Mg Capsule] 2 cap PO DAILY 03/20/20 Iron/Vit C/Fructooligosacchard [Chewable Iron 30 mg Tablet] 1 tab PO DAILY 03/20/20 Mecobalamin [B-12] 1 tab PO DAILY 03/20/20 Multivitamin [Multiple Vitamins] 1 tab PO DAILY 03/20/20 Vitaman D3 5,000 unit PO DAILY 03/20/20 Allergies/Adverse Reactions: Allergies Allergy/AdvReac Type Severity Reaction Status Date / Time clindamycin Allergy Intermediate Rash Verified 03/20/20 14:32 duloxetine [From Cymbalta] Allergy Unknown Verified 03/20/20 14:32 glipizide Allergy Unknown Verified 03/20/20 14:32 hydrocodone Allergy Unknown Verified 03/20/20 14:32 menthol Allergy Unknown Verified 03/20/20 14:32 metformin Allergy Unknown Verified 03/20/20 14:32 Sulfa (Sulfonamide Allergy Unknown Verified 03/20/20 14:32 Antibiotics) phenytoin sodium * AdvReac Unknown Hives Verified 03/20/20 14:32 [From Dilantin] phenytoin sodium extended * AdvReac Unknown Hives Verified 03/20/20 14:32 [From Dilantin] acetaminophen [From Percocet] AdvReac Itching Verified 03/20/20 14:32 hydromorphone [From Dilaudid] AdvReac Itching Verified 03/20/20 14:32 oxycodone [From Percocet] AdvReac Itching Verified 03/20/20 14:32 Anes History & Medical History - Anesthetic History Anesthesia Complications: reports: No previous complications - Medical History Cardiovascular: reports: Hypertension Pulmonary: reports: Sleep apnea (no cpap) Gastrointestinal: reports: GERD, Ulcers, Colon polyps Urinary: reports: Other Neuro: reports: None, Migraines Musculoskeletal: reports: Fibromyalgia, Chronic back pain Endocrine/Autoimmune: reports: Type 2 diabetes Blood Disorders: reports: Anemia Skin: reports: None Smoking Status: Never smoker Psychosocial: reports: Depression - Surgical History General: Hiatal hernia repair, Colonoscopy, EGD, Other (Gastric sleeve) Gynecologic: Hysterectomy Exam General: Alert, Oriented x3, Cooperative, No acute distress Dental: WNL Mouth Openin Fingerbreadth Neck Mobility: Normal Mallampati classification: IV Mental/Cognitive Status: Alert/Oriented X3, Normal for patient Plan Anesthesia Type: MAC Consent for Procedure(s) Verified and Reviewed: Yes Code Status: Attempt Resuscitation ASA classification: 2-Mild systemic disease Is this case an emergency?: No
[2020-05-16] MEDS ORDERED: PROPOFOL 200 MG/20 ML VIAL IVP ONE (12:11)
[2020-05-16] MEDS ORDERED: MIDAZOLAM 2 MG/2 ML VIAL IVP ONE (12:11)
[2020-05-16] MEDS ORDERED: ONDANSETRON 4 MG/2 ML VIAL IVP ONE (13:00)
[2020-05-16 13:39] VITALS: BP 105/66
--- NOTE | 2020-05-16 19:52 | ANESTHESIA POST OP EVALUATION ---
Anesthesia Post Eval - Post Anesthesia Eval Vitals: Last Vital Signs Temp 37.0 C 05/16/20 13:17 Pulse 55 L 05/16/20 13:17 Resp 15 05/16/20 13:17 BP 105/66 05/16/20 13:17 Pulse Ox 98 05/16/20 13:17 CV Function Including HR & BP: positive: Stable Pain Control: positive: Satisfactory Nausea & Vomiting: positive: Negative Mental Status: positive: Baseline Respiratory Status: Airway Patent Hydration Status: Satisfactory Anesthesia Complications: positive: None
== END 2020-05-16 10:58 | disposition home or self-care (01) ==
LOC: SDS 10:57
PROVIDERS: ATTEND Surgery
PROC: 0DJD8ZZ Inspection of Lower Intestinal Tract, Via Natural or Artificial Opening Endoscopic (ICD-10-PCS; principal; 2020-05-16 12:00)
DX: Z12.11 Encounter for screening for malignant neoplasm of colon (principal); Z86.010 Personal history of colon polyps; K64.4 Residual hemorrhoidal skin tags; K64.8 Other hemorrhoids; Z98.84 Bariatric surgery status; I10 Essential (primary) hypertension; M79.7 Fibromyalgia; Z79.4 Long term (current) use of insulin; Z80.0 Family history of malignant neoplasm of digestive organs; G47.30 Sleep apnea, unspecified
CPT/HCPCS: 45378; J7120

== ENCOUNTER 2020-05-30 09:25 | Outpatient (CLI) | payer OTHER ==
[2020-05-30 12:03] LABS: BASOPHILS % (AUTO) 0.6 %; EOSINOPHILS # (AUTO) 0.2 10^3/uL (0.0-0.7); EOSINOPHILS % (AUTO) 3.5 %; HGB - HEMOGLOBIN 15.2 g/dL (12.0-16.0); LYMPHOCYTES # (AUTO) 2.1 10^3/uL (1.5-3.5); LYMPHOCYTES % (AUTO) 31.1 %; MEAN CORPUSCULAR HEMOGLOBIN 30.8 pg (27.0-31.0); MEAN CORPUSCULAR HGB CONC 32.4 g/dL (32.0-36.0); MEAN CORPUSCULAR VOLUME 95.1 fL (81.0-99.0); MEAN PLATELET VOLUME 10.4 fL (7.9-10.8); MONOCYTES # (AUTO) 0.6 10^3/uL (0.0-1.0); MONOCYTES % (AUTO) 8.3 %; NEUTROPHILS # (AUTO) 3.8 10^3/uL (1.5-6.6); NEUTROPHILS % (AUTO) 56.2 %; PLT - PLATELET COUNT 262 10^3/uL (130-450); RED BLOOD COUNT 4.93 10^6/uL (4.20-5.40); RED CELL DISTRIBUTION WIDTH 13.7 % (12.0-15.0); WHITE BLOOD COUNT 6.8 x10^3/uL (4.8-10.8)
[2020-05-30 12:34] LABS: ALBUMIN 4.1 g/dL (3.2-5.5); ALBUMIN/GLOBULIN RATIO 1.4 (1.0-2.2); ALKALINE PHOSPHATASE 44 IU/L (42-121); ALT ALANINE AMINOTRANSFERASE 33 IU/L (10-60); AST ASPARTATE AMINOTRANSFERASE 26 IU/L (10-42); BILIRUBIN,TOTAL 0.9 mg/dL (0.2-1.0); BUN - BLOOD UREA NITROGEN 15 mg/dL (6-20); CALCIUM 9.3 mg/dL (8.5-10.3); CARBON DIOXIDE - CO2 26 mmol/L (21-32); CHLORIDE 105 mmol/L (101-111); CHOL/HDL RATIO 4.3 (<4.4); CHOLESTEROL 230 mg/dL; CREATININE 0.5 mg/dL (0.4-1.0); GLUCOSE 93 mg/dL (70-100); HDL CHOLESTEROL 54 mg/dL; LDL CHOLESTEROL,CALCULATED 155 mg/dL; LDL/HDL RATIO 2.9 (<4.4); MAGNESIUM 2.1 mg/dL (1.7-2.8); SODIUM 141 mmol/L (135-145); VLDL CHOLESTEROL 21 mg/dL
[2020-05-30 12:35] LABS: FERRITIN 94.8 ng/mL (11.0-306.8)
[2020-05-30 12:40] LABS: FOLATE 20.15 ng/mL (5.90 - >24.8)
[2020-05-30 12:41] LABS: CREATININE,URINE 247.2 mg/dL; MICROALBUM/CREATININE RATIO,UR 3.6 ug/mg (<30.0); MICROALBUMIN,URINE 0.9 mg/dL (0-300.0)
[2020-05-30 13:02] LABS: HEMOGLOBIN A1c% 6.1 % (4.27-6.07)
== END 2020-05-30 23:59 ==
LOC: LAB.WCP 09:25
PROVIDERS: ATTEND Physician Assistant Medical
DX: E11.9 Type 2 diabetes mellitus without complications (principal); Z98.84 Bariatric surgery status
CPT/HCPCS: 36415; 80053; 80061; 82043; 82306; 82570; 82607; 82728; 82746; 83036; 83721; 83735; 83970; 84425; 84443; 84590; 85025

== ENCOUNTER 2020-07-05 15:29 | Outpatient (CLI) | payer OTHER ==
--- NOTE | 2020-07-05 17:04 | XRAY Report ---
PROCEDURE: Sacrum/Coccyx INDICATIONS: FRACTURE OF COCCYX TECHNIQUE: 3 views of the sacrum and coccyx acquired. COMPARISON: Coccyx x-ray 02/03/2020. FINDINGS: Bones: Small areas of diastases are noted within the distal portion of the coccyx. Previous fracture is noted with continued interval healing. No suspicious bony lesions. Soft tissues: Visualized bowel gas pattern is normal. No suspicious soft tissue densities. IMPRESSION: Previously noted coccyx fracture with stable alignment. No new fracture is clearly identified. Reviewed by: Blanca Ann MD on 07/05/2020 5:03 PM PDT Approved by: Blanca Ann MD on 07/05/2020 5:03 PM PDT Station ID: [id number]
== END 2020-07-05 15:30 | disposition home or self-care (01) ==
LOC: DI 15:29
PROVIDERS: ATTEND Physician Assistant Medical
DX: M54.5 Low back pain (principal); Z87.81 Personal history of (healed) traumatic fracture
CPT/HCPCS: 72220

== ENCOUNTER 2020-07-13 07:15 | Outpatient (CLI) | payer OTHER ==
--- NOTE | 2020-07-19 10:46 | MRI Report ---
PROCEDURE: Lumbar Spine W/O INDICATIONS: LOW BACK PAIN TECHNIQUE: Noncontrast sagittal T1 spin echo and T2 fast echo, sagittal STIR, axial T1 and T2 fast spin echo thr ough the lumbar spine. In cases with scoliosis, additional coronal T2 fast spin echo may be performe d. COMPARISON: None. FINDINGS: Image quality: Excellent. Alignment and Curvature: There is normal bony alignment. Bone Marrow: Marrow is of normal overall signal. No acute vertebral body compression fractures. Spinal Cord: Conus medullaris terminates at the inferior T12 level. Visualized cord demonstrates no rmal signal and size. Region Soft Tissues: Prevertebral paraspinous soft tissues are within normal limits. T12-L1: No spinal canal or neural foraminal stenosis. L1-L2: Disc desiccation without disc height loss. No disc bulge, spinal canal stenosis, or neural foraminal stenosis. L2-L3: Disc desiccation and mild disc height loss. No disc bulge, spinal canal stenosis, or neural foraminal stenosis. L3-L4: Disc desiccation and disc height loss. Diffuse bulge flattens ventral thecal sac. No mass ef fect upon the traversing L4 nerve roots. Foraminal components of the disc bulge contribute to mild le ft greater than right neural foraminal stenosis. L4-L5: Disc desiccation and disc height loss. Diffuse disc bulge flattens the ventral thecal sac wi thout mass effect upon the traversing L5 nerve roots. Foraminal component of the disc bulge contribut e to mild left greater than right neural foraminal stenosis in conjunction with facet hypertrophy. L5-S1: Diffuse disc bulge with disc material abutting but not obviously displacing the descending S 1 nerve roots within both subarticular zones. Neural foraminal height loss and foraminal components o f the disc bulge combine with facet hypertrophy and buckling of the ligamentum flavum to produce mode rate-severe neural foraminal narrowing on the right and mild neural foraminal narrowing on the left IMPRESSION: Multilevel multifactorial degenerative changes most pronounced at L5-S1 where there is moderate-sever e neural foraminal narrowing on the right. Correlate for any corresponding right L5 radicular symptom s. Reviewed by: Seferino Jordan MD on 07/19/2020 10:44 AM PDT Approved by: Seferino Jordan MD on 07/19/2020 10:44 AM PDT Station ID: [id number]
== END 2020-07-13 07:16 | disposition home or self-care (01) ==
LOC: DI 07:15
PROVIDERS: ATTEND Physician Assistant Medical
DX: M51.36 Other intervertebral disc degeneration, lumbar region (principal); M48.061 Spinal stenosis, lumbar region without neurogenic claudication; M51.37 Other intervertebral disc degeneration, lumbosacral region; M48.07 Spinal stenosis, lumbosacral region; M47.817 Spondylosis without myelopathy or radiculopathy, lumbosacral region; M47.816 Spondylosis without myelopathy or radiculopathy, lumbar region
CPT/HCPCS: 72148

== ENCOUNTER 2020-09-09 10:30 | Outpatient (CLI) | payer OTHER | END 2020-09-09 10:31 | disposition home or self-care (01) | LOC: COV 10:30 | PROVIDERS: ATTEND Family Medicine | DX: M79.10 Myalgia, unspecified site (principal); R53.83 Other fatigue; R68.83 Chills (without fever); R07.0 Pain in throat; R43.8 Other disturbances of smell and taste; R09.81 Nasal congestion; J34.89 Other specified disorders of nose and nasal sinuses; R11.2 Nausea with vomiting, unspecified; Z20.828 Contact with and (suspected) exposure to other viral communicable diseases ==

== ENCOUNTER 2020-10-25 14:43 | Outpatient (CLI) | payer OTHER ==
--- NOTE | 2020-10-25 16:44 | XRAY Report ---
PROCEDURE: Thoracic Spine 3 View INDICATIONS: T-SPINE BACK PAIN TECHNIQUE: 3 views of the thoracic spine were acquired. COMPARISON: None. FINDINGS: Bones: No fractures or dislocations. No suspicious bony lesions. 12 pairs of ribs are noted, and a ppear intact where visualized. Minimal scattered thoracic disc space narrowing. Soft tissues: No paravertebral stripe thickening. IMPRESSION: No visualized acute fracture or dislocation. However, occult injury cannot be excluded. Recommend wilver rt interval imaging follow-up in 7-10 days as clinically indicated for additional evaluation. If conc flor persists, MRI may be obtained as clinically indicated for further evaluation. Reviewed by: Blanca Ann MD on 10/25/2020 4:43 PM PST Approved by: Blanca Ann MD on 10/25/2020 4:[address] [facility] Station ID: [id number]
--- NOTE | 2020-10-25 16:45 | XRAY Report ---
PROCEDURE: Ribs 2 View RT INDICATIONS: LOW BACK PAIN, ACUTE TECHNIQUE: 3 views of the right ribs were acquired. COMPARISON: None FINDINGS: Surgical changes and devices: None. Bones and chest wall: No fractures or dislocations. No suspicious bony lesions. Overlying soft tis sues appear unremarkable. Lungs and pleura: The visualized lung appears clear. No pleural effusions or pneumothorax are visib le. IMPRESSION: No visualized acute fracture or dislocation. However, occult injury cannot be excluded. Recommend wilver rt interval imaging follow-up in 7-10 days as clinically indicated for additional evaluation. Reviewed by: Blanca Ann MD on 10/25/2020 4:44 PM PST Approved by: Blanca Ann MD on 10/25/2020 4:44 PM PST Station ID: [id number]
--- NOTE | 2020-10-25 16:45 | XRAY Report ---
PROCEDURE: Lumbar Spine 2 View INDICATIONS: LOW BACK PAIN TECHNIQUE: 2 views of the lumbar spine were acquired. COMPARISON: X-ray thoracic spine 10/25/2020 FINDINGS: Bones: 5 [id number] vertebrae are present. There is trace retrolisthesis of L1 on L2, L2 on L3 , L3 on L4. There is multilevel overall mild disc space narrowing, moderate to severe at L5-S1. Sever e foraminal narrowing is noted at L5-S1, mild to moderate L4-5.. No vertebral body compression fract ures. No suspicious bony lesions. Soft tissues: Overlying bowel gas pattern is normal. No suspicious soft tissue calcifications. IMPRESSION: Foraminal narrowing most notable at L5-S1. As clinically indicated, MRI may be obtained for further evaluation. Reviewed by: Blanca Ann MD on 10/25/2020 4:43 PM PST Approved by: Blanca Ann MD on 10/25/2020 4:43 PM PST Station ID: [id number]
== END 2020-10-25 14:44 | disposition home or self-care (01) ==
LOC: DI.N 14:43
PROVIDERS: ATTEND Physician Assistant Medical
DX: M54.5 Low back pain (principal); M43.16 Spondylolisthesis, lumbar region; M51.36 Other intervertebral disc degeneration, lumbar region; M48.061 Spinal stenosis, lumbar region without neurogenic claudication; M51.37 Other intervertebral disc degeneration, lumbosacral region; M48.07 Spinal stenosis, lumbosacral region

== ENCOUNTER 2020-11-06 08:00 | Outpatient (CLI) | payer OTHER ==
[2020-11-06 13:47] LABS: ALBUMIN 4.2 g/dL (3.2-5.5); ALBUMIN/GLOBULIN RATIO 1.4 (1.0-2.2); ALKALINE PHOSPHATASE 38 IU/L (42-121); ALT ALANINE AMINOTRANSFERASE 25 IU/L (10-60); AST ASPARTATE AMINOTRANSFERASE 21 IU/L (10-42); BUN - BLOOD UREA NITROGEN 13 mg/dL (6-20); CALCIUM 9.4 mg/dL (8.5-10.3); CARBON DIOXIDE - CO2 26 mmol/L (21-32); CHLORIDE 102 mmol/L (101-111); CHOL/HDL RATIO 3.1 (<4.4); CHOLESTEROL 213 mg/dL; CREATININE 0.4 mg/dL (0.4-1.0); GLUCOSE 92 mg/dL (70-100); HDL CHOLESTEROL 68 mg/dL; LDL CHOLESTEROL,CALCULATED 133 mg/dL; MAGNESIUM 2.3 mg/dL (1.7-2.8); TOTAL PROTEIN 7.1 g/dL (6.7-8.2); VLDL CHOLESTEROL 12 mg/dL
[2020-11-06 13:54] LABS: CRP - C-REACTIVE PROTEIN < 1.0 mg/dL (0-1.0)
[2020-11-06 14:53] LABS: HEMOGLOBIN A1c% 5.3 % (4.27-6.07)
== END 2020-11-06 23:59 | disposition home or self-care (01) ==
LOC: LAB.WCP 08:00
PROVIDERS: ATTEND Physician Assistant Medical
DX: E11.9 Type 2 diabetes mellitus without complications (principal); M79.7 Fibromyalgia; M54.5 Low back pain
CPT/HCPCS: 36415; 80053; 80061; 81599; 83036; 83721; 83735; 85651; 86140; 86812

== ENCOUNTER 2021-05-12 08:35 | Outpatient (CLI) | payer OTHER ==
[2021-05-12 12:46] LABS: ALBUMIN 4.5 g/dL (3.2-5.5); ALBUMIN/GLOBULIN RATIO 1.6 (1.0-2.2); ALKALINE PHOSPHATASE 44 IU/L (42-121); ALT ALANINE AMINOTRANSFERASE 23 IU/L (10-60); AST ASPARTATE AMINOTRANSFERASE 20 IU/L (10-42); BILIRUBIN,TOTAL 0.8 mg/dL (0.2-1.0); BUN - BLOOD UREA NITROGEN 18 mg/dL (6-20); CALCIUM 9.4 mg/dL (8.5-10.3); CARBON DIOXIDE - CO2 28 mmol/L (21-32); CHLORIDE 103 mmol/L (101-111); CHOL/HDL RATIO 3.3 (<4.4); CHOLESTEROL 244 mg/dL; CREATININE 0.5 mg/dL (0.4-1.0); GFR - MDRD 132 (>89); GLUCOSE 92 mg/dL (70-100); HDL CHOLESTEROL 75 mg/dL; LDL CHOLESTEROL,CALCULATED 149 mg/dL; POTASSIUM 3.8 mmol/L (3.5-5.0); SODIUM 139 mmol/L (135-145); TOTAL PROTEIN 7.4 g/dL (6.7-8.2); TRIGLYCERIDES 99 mg/dL; VLDL CHOLESTEROL 20 mg/dL
[2021-05-12 12:49] LABS: THYROID STIMULATING HORMONE 2.38 uIU/mL (0.34-5.60)
[2021-05-12 12:55] LABS: FERRITIN 43.4 ng/mL (11.0-306.8)
[2021-05-12 13:38] LABS: ESTIMATED AVERAGE GLUCOSE 108 mg/dL (70-100); HEMOGLOBIN A1c% 5.4 % (4.27-6.07)
[2021-05-12 18:07] LABS: BASOPHILS % (AUTO) 0.6 %; EOSINOPHILS # (AUTO) 0.3 10^3/uL (0.0-0.7); HCT - HEMATOCRIT 48.2 % (37.0-47.0); HGB - HEMOGLOBIN 15.1 g/dL (12.0-16.0); LYMPHOCYTES # (AUTO) 2.6 10^3/uL (1.5-3.5); LYMPHOCYTES % (AUTO) 36.6 %; MEAN CORPUSCULAR HEMOGLOBIN 30.8 pg (27.0-31.0); MEAN CORPUSCULAR HGB CONC 31.3 g/dL (32.0-36.0); MEAN CORPUSCULAR VOLUME 98.2 fL (81.0-99.0); MONOCYTES # (AUTO) 0.5 10^3/uL (0.0-1.0); MONOCYTES % (AUTO) 6.9 %; NEUTROPHILS # (AUTO) 3.6 10^3/uL (1.5-6.6); NEUTROPHILS % (AUTO) 51.6 %; PLT - PLATELET COUNT 235 10^3/uL (130-450); RED BLOOD COUNT 4.91 10^6/uL (4.20-5.40); RED CELL DISTRIBUTION WIDTH 12.7 % (12.0-15.0)
== END 2021-05-12 08:36 | disposition home or self-care (01) ==
LOC: LAB.N 08:35
PROVIDERS: ATTEND Physician Assistant Medical
DX: E11.9 Type 2 diabetes mellitus without complications (principal); E78.5 Hyperlipidemia, unspecified; D64.9 Anemia, unspecified
CPT/HCPCS: 36415; 80053; 80061; 82607; 82728; 83036; 83721; 84443; 85025

== ENCOUNTER 2021-12-25 08:00 | Outpatient (CLI) | payer OTHER | END 2021-12-25 23:59 | LOC: LAB.R 08:00 | PROVIDERS: ATTEND Physician Assistant Medical | DX: B34.9 Viral infection, unspecified (principal); Z20.822 Contact with and (suspected) exposure to COVID-19 ==

== ENCOUNTER 2022-02-20 08:53 | Outpatient (CLI) | payer OTHER ==
[2022-02-20 12:07] LABS: BASOPHILS # (AUTO) 0.1 10^3/uL (0.0-0.1); BASOPHILS % (AUTO) 0.9 %; EOSINOPHILS # (AUTO) 0.4 10^3/uL (0.0-0.7); EOSINOPHILS % (AUTO) 5.3 %; HCT - HEMATOCRIT 45.9 % (37.0-47.0); HGB - HEMOGLOBIN 15.3 g/dL (12.0-16.0); LYMPHOCYTES # (AUTO) 2.6 10^3/uL (1.5-3.5); LYMPHOCYTES % (AUTO) 37.4 %; MEAN CORPUSCULAR HGB CONC 33.3 g/dL (32.0-36.0); MEAN CORPUSCULAR VOLUME 93.1 fL (81.0-99.0); MEAN PLATELET VOLUME 10.2 fL (7.9-10.8); MONOCYTES # (AUTO) 0.6 10^3/uL (0.0-1.0); NEUTROPHILS # (AUTO) 3.4 10^3/uL (1.5-6.6); NEUTROPHILS % (AUTO) 48.1 %; PLT - PLATELET COUNT 255 10^3/uL (130-450); RED BLOOD COUNT 4.93 10^6/uL (4.20-5.40); RED CELL DISTRIBUTION WIDTH 12.7 % (12.0-15.0)
[2022-02-20 12:34] LABS: THYROID STIMULATING HORMONE 2.29 uIU/mL (0.34-5.60)
[2022-02-20 12:43] LABS: ALBUMIN 4.1 g/dL (3.2-5.5); ALBUMIN/GLOBULIN RATIO 1.2 (1.0-2.2); ALKALINE PHOSPHATASE 43 IU/L (42-121); ALT ALANINE AMINOTRANSFERASE 23 IU/L (10-60); AST ASPARTATE AMINOTRANSFERASE 18 IU/L (10-42); BILIRUBIN,TOTAL 0.9 mg/dL (0.2-1.0); BUN - BLOOD UREA NITROGEN 15 mg/dL (6-20); CALCIUM 9.7 mg/dL (8.5-10.3); CARBON DIOXIDE - CO2 27 mmol/L (21-32); CHLORIDE 103 mmol/L (101-111); CHOL/HDL RATIO 3.6 (<4.4); CHOLESTEROL 263 mg/dL; CREATININE 0.6 mg/dL (0.4-1.0); GFR - MDRD 107 (>89); GLUCOSE 107 mg/dL (70-100); HDL CHOLESTEROL 74 mg/dL; LDL CHOLESTEROL,CALCULATED 159 mg/dL; LDL/HDL RATIO 2.1 (<4.4); POTASSIUM 4.2 mmol/L (3.5-5.0); SODIUM 141 mmol/L (135-145); TOTAL PROTEIN 7.5 g/dL (6.7-8.2); TRIGLYCERIDES 149 mg/dL; VLDL CHOLESTEROL 30 mg/dL
== END 2022-02-20 08:54 | disposition home or self-care (01) ==
LOC: LAB.N 08:53
PROVIDERS: ATTEND Physician Assistant Medical
DX: Z00.00 Encounter for general adult medical examination without abnormal findings (principal)
CPT/HCPCS: 36415; 80053; 80061; 83721; 84443; 85025

== ENCOUNTER 2022-10-16 07:45 | Outpatient (CLI) | payer BC ==
[2022-10-16 12:52] LABS: BASOPHILS # (AUTO) 0.1 10^3/uL (0.0-0.1); BASOPHILS % (AUTO) 0.8 %; EOSINOPHILS # (AUTO) 0.2 10^3/uL (0.0-0.7); EOSINOPHILS % (AUTO) 2.9 %; HGB - HEMOGLOBIN 14.9 g/dL (12.0-16.0); MEAN CORPUSCULAR HEMOGLOBIN 30.8 pg (27.0-31.0); MEAN CORPUSCULAR HGB CONC 33.1 g/dL (32.0-36.0); MEAN CORPUSCULAR VOLUME 93.2 fL (81.0-99.0); MEAN PLATELET VOLUME 10.6 fL (7.9-10.8); MONOCYTES # (AUTO) 0.5 10^3/uL (0.0-1.0); MONOCYTES % (AUTO) 7.5 %; NEUTROPHILS # (AUTO) 3.8 10^3/uL (1.5-6.6); NEUTROPHILS % (AUTO) 58.5 %; PLT - PLATELET COUNT 267 10^3/uL (130-450); RED BLOOD COUNT 4.83 10^6/uL (4.20-5.40); RED CELL DISTRIBUTION WIDTH 13.1 % (12.0-15.0); WHITE BLOOD COUNT 6.6 x10^3/uL (4.8-10.8)
[2022-10-16 13:26] LABS: ESTIMATED AVERAGE GLUCOSE 134 mg/dL (70-100); HEMOGLOBIN A1c% 6.3 % (4.27-6.07)
[2022-10-16 13:28] LABS: THYROID STIMULATING HORMONE 1.36 uIU/mL (0.34-5.60)
[2022-10-16 13:40] LABS: ALBUMIN 4.2 g/dL (3.2-5.5); ALBUMIN/GLOBULIN RATIO 1.3 (1.0-2.2); ALKALINE PHOSPHATASE 44 IU/L (42-121); ALT ALANINE AMINOTRANSFERASE 19 IU/L (10-60); AST ASPARTATE AMINOTRANSFERASE 19 IU/L (10-42); BILIRUBIN,TOTAL 1.3 mg/dL (0.2-1.0); BUN - BLOOD UREA NITROGEN 21 mg/dL (6-20); CALCIUM 9.7 mg/dL (8.5-10.3); CARBON DIOXIDE - CO2 28 mmol/L (21-32); CHLORIDE 104 mmol/L (101-111); CHOL/HDL RATIO 3.8 (<4.4); CHOLESTEROL 272 mg/dL; CREATININE 0.6 mg/dL (0.4-1.0); GFR - MDRD 107 (>89); GLUCOSE 109 mg/dL (70-100); HDL CHOLESTEROL 71 mg/dL; LDL CHOLESTEROL,CALCULATED 168 mg/dL; LDL/HDL RATIO 2.4 (<4.4); POTASSIUM 3.5 mmol/L (3.5-5.0); SODIUM 142 mmol/L (135-145); TOTAL PROTEIN 7.4 g/dL (6.7-8.2); TRIGLYCERIDES 164 mg/dL; VLDL CHOLESTEROL 33 mg/dL
== END 2022-10-16 07:46 | disposition home or self-care (01) ==
LOC: LAB.N 07:45
PROVIDERS: ATTEND Registered Nurse
DX: D64.9 Anemia, unspecified (principal); R53.83 Other fatigue; K76.0 Fatty (change of) liver, not elsewhere classified; E78.5 Hyperlipidemia, unspecified; E11.9 Type 2 diabetes mellitus without complications; Z98.84 Bariatric surgery status
CPT/HCPCS: 36415; 80053; 80061; 82306; 83036; 83721; 84443; 85025

== ENCOUNTER 2024-04-27 13:55 | Outpatient (CLI) | payer BC ==
--- NOTE | 2024-04-27 15:13 | XRAY Report ---
PROCEDURE: Lumbar Spine 2-3V INDICATIONS: LUMBAR RADICULOPATHY TECHNIQUE: 2 views of the lumbar spine were acquired. COMPARISON: Lumbar spine x-ray 10/25/2020 FINDINGS: Diffuse osseous demineralization. Rudimentary ribs are present at T12. There are 5 nonrib-bearing lum bar vertebrae. The vertebral body heights are preserved. Mild multilevel intervertebral disc height l oss, most conspicuous at L5-S1. Multilevel foraminal narrowing, most conspicuous at L5-S1. 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 Mildly exaggerated lumbar lordosi s. Surgical clips along the epigastric region. IMPRESSION: Severe foraminal narrowing at L5-S1, unchanged from the 10/25/2020 exam. Reviewed by: Gerry Navarro MD on 04/27/2024 3:11 PM PDT Approved by: Gerry Navarro MD on 04/27/2024 3:11 PM PDT Station ID: [id number]
== END 2024-04-27 13:56 | disposition home or self-care (01) ==
LOC: DI 13:55
PROVIDERS: ATTEND Physician Assistant
DX: M47.26 Other spondylosis with radiculopathy, lumbar region (principal); M47.27 Other spondylosis with radiculopathy, lumbosacral region; M48.07 Spinal stenosis, lumbosacral region

== ENCOUNTER 2024-04-27 13:56 | Outpatient (CLI) | payer BC ==
--- NOTE | 2024-04-28 11:12 | XRAY Report ---
PROCEDURE: Foot 3+V LT INDICATIONS: LEFT FOOT PAIN TECHNIQUE: 3 views of the foot were obtained. COMPARISON: None FINDINGS: Bones: No fractures or dislocations. No suspicious bony lesions. Moderate plantar calcaneal spur Soft tissues: Unremarkable. No radiopaque foreign body. IMPRESSION: Moderate plantar calcaneal spur Reviewed by: Zev Xiong MD on 04/28/2024 10:11 AM GET Approved by: Zev Xiong MD on 04/28/2024 10:11 AM GET Station ID: [id number]
== END 2024-04-27 13:57 | disposition home or self-care (01) ==
LOC: DI 13:56
PROVIDERS: ATTEND Physician Assistant Medical
DX: M77.32 Calcaneal spur, left foot (principal); M47.26 Other spondylosis with radiculopathy, lumbar region; M47.27 Other spondylosis with radiculopathy, lumbosacral region; M48.07 Spinal stenosis, lumbosacral region

== ENCOUNTER 2024-05-31 06:59 | Outpatient (CLI) | payer BC ==
[2024-05-31 12:27] LABS: BASOPHILS # (AUTO) 0.1 10^3/uL (0.0-0.1); BASOPHILS % (AUTO) 0.8 %; EOSINOPHILS # (AUTO) 0.3 10^3/uL (0.0-0.7); EOSINOPHILS % (AUTO) 3.5 %; HCT - HEMATOCRIT 45.9 % (37.0-47.0); HGB - HEMOGLOBIN 15.2 g/dL (12.0-16.0); LYMPHOCYTES # (AUTO) 2.7 10^3/uL (1.5-3.5); MEAN CORPUSCULAR HEMOGLOBIN 30.5 pg (27.0-31.0); MEAN CORPUSCULAR HGB CONC 33.1 g/dL (32.0-36.0); MEAN CORPUSCULAR VOLUME 92.2 fL (81.0-99.0); MEAN PLATELET VOLUME 10.8 fL (7.9-10.8); MONOCYTES # (AUTO) 0.6 10^3/uL (0.0-1.0); MONOCYTES % (AUTO) 7.9 %; NEUTROPHILS # (AUTO) 4.1 10^3/uL (1.5-6.6); NEUTROPHILS % (AUTO) 52.7 %; PLT - PLATELET COUNT 302 10^3/uL (130-450); RED BLOOD COUNT 4.98 10^6/uL (4.20-5.40); RED CELL DISTRIBUTION WIDTH 12.8 % (12.0-15.0); WHITE BLOOD COUNT 7.7 x10^3/uL (4.8-10.8)
[2024-05-31 12:36] LABS: ESTIMATED AVERAGE GLUCOSE 203 mg/dL (70-100); HEMOGLOBIN A1c% 8.7 % (4.27-6.07)
[2024-05-31 12:50] LABS: ALBUMIN 4.1 g/dL (3.2-5.5); ALBUMIN/GLOBULIN RATIO 1.4 (1.0-2.2); ALKALINE PHOSPHATASE 46 IU/L (42-121); ALT ALANINE AMINOTRANSFERASE 26 IU/L (10-60); AST ASPARTATE AMINOTRANSFERASE 16 IU/L (10-42); BILIRUBIN,TOTAL 0.8 mg/dL (0.2-1.0); BUN - BLOOD UREA NITROGEN 16 mg/dL (6-20); CALCIUM 9.2 mg/dL (8.5-10.3); CARBON DIOXIDE - CO2 24 mmol/L (21-32); CHLORIDE 106 mmol/L (101-111); CHOL/HDL RATIO 4.1 (<4.4); CHOLESTEROL 256 mg/dL; CREATININE 0.5 mg/dL (0.6-1.3); CRP - C-REACTIVE PROTEIN < 0.5 mg/dL (<0.5); GFR - MDRD 131 (>89); GLUCOSE 182 mg/dL (74-104); HDL CHOLESTEROL 62 mg/dL; LDL CHOLESTEROL,CALCULATED 163 mg/dL; LDL/HDL RATIO 2.6 (<4.4); POTASSIUM 3.8 mmol/L (3.5-4.5); SODIUM 138 mmol/L (135-145); TRIGLYCERIDES 156 mg/dL; VLDL CHOLESTEROL 31 mg/dL
[2024-05-31 12:58] LABS: THYROID STIMULATING HORMONE 2.13 uIU/mL (0.34-5.60)
== END 2024-05-31 07:00 | disposition home or self-care (01) ==
LOC: LAB.N 06:59
PROVIDERS: ATTEND Physician Assistant Medical
DX: Z00.00 Encounter for general adult medical examination without abnormal findings (principal); E11.9 Type 2 diabetes mellitus without complications; E78.5 Hyperlipidemia, unspecified; M25.50 Pain in unspecified joint
CPT/HCPCS: 36415; 80053; 80061; 83036; 83721; 84443; 85025; 85651; 86140